=== PATIENT | male | born 1945 | race Caucasian/White ===

== ENCOUNTER 2017-01-19 20:28 | Emergency (ER) | payer OTHER ==
[2017-01-19 20:38] VITALS: BP 165/86; PULSE 107; TEMP 98.6; BMI 32.5
[2017-01-19] MEDS ORDERED: IBUPROFEN 400 MG TABLET (FP) PO ONE ×2 (21:12→21:28)
--- NOTE | 2017-01-19 21:17 | PDOC ---
History of Present Illness - General History Source: Patient, Family (Son) Exam Limitations: No Limitations - History of Present Illness Initial Comments: 01/19/17 21:40 The patient is a 71 year old male, with a significant past medical history of HTN, hyperlipidemia and diabetes, who presents to the emergency department with chest pain and left wrist pain s/p a mechanical trip and fall down the stairs earlier this evening. The patient states that he missed a step and fell, he denies any syncopal event. The patient states that he landed on his anterior chest and additionally hit his left wrist on the handle of a lawnmower as he fell. The patient is presenting with left sternal pain and left wrist pain. The patient denies hitting his head, denies head trauma or LOC. The patient denies neck pain, back pain or any extremity numbness or weakness. The patient's son is at the bedside. Allergies: None reported. Past Surgical History: None reported. Social History: Non smoker. Denies alcohol or drug use. PCP: Dr. Carmen <Nicki Pool - Last Filed: 01/19/17 23:01> - General History Source: Patient Exam Limitations: No Limitations <Fidencio Chaney - Last Filed: 01/19/17 23:30> - General Chief Complaint: Chest Pain Stated Complaint: FALL/CHEST PAIN/LT ARM PAIN Time Seen by Provider: 01/19/17 20:30 Past History <Nicki Pool - Last Filed: 01/19/17 23:01> - Past Medical History Diabetes: Yes HTN: Yes Hypercholesterolemia: Yes - Psycho/Social/Smoking Cessation Hx Anxiety: No Suicidal Ideation: No Smoking History: Never smoked Have you smoked in the past 12 months: No Information on smoking cessation initiated: No Hx Alcohol Use: No Drug/Substance Use Hx: No Substance Use Type: None <Fidencio Chaney - Last Filed: 01/19/17 23:30> - Past Medical History Allergies/Adverse Reactions: Allergies Allergy/AdvReac Type Severity Reaction Status Date / Time No Known Allergies Allergy Verified 01/19/17 21:23 Home Medications: Ambulatory Orders Amlodipine Besylate [Norvasc -] 10 mg PO DAILY 01/19/17 Aspirin [ASA -] 81 mg PO DAILY 01/19/17 Atorvastatin Ca [Lipitor] 40 mg PO HS 01/19/17 Insulin Glargine,Hum.rec.anlog [Lantus Solostar PEN (NF)] 0 units SQ HS Insulin Lispro [Humalog] 100 unit SQ ASDIR 01/19/17 Liraglutide [Victoza -] 0 mg SQ ASDIR 01/19/17 Metformin HCl [Glucophage] 1,000 mg PO BID 01/19/17 Olmesartan Medoxomil [Benicar (Nf)] 40 mg PO DAILY 01/19/17 Review of Systems - Review of Systems Able to Perform ROS?: Yes Comments:: 01/19/17 21:39 GENERAL/CONSTITUTIONAL: No fever or chills. No weakness. HEAD, EYES, EARS, NOSE AND THROAT: No change in vision. No ear pain or discharge. No sore throat. CARDIOVASCULAR: +Chest pain. No shortness of breath. RESPIRATORY: No cough, wheezing, or hemoptysis. GASTROINTESTINAL: No nausea, vomiting, diarrhea or constipation. GENITOURINARY: No dysuria, frequency, or change in urination. MUSCULOSKELETAL: +Left sternal pain, left wrist pain. No muscle swelling or pain. No neck or back pain. SKIN: No rash. NEUROLOGIC: No headache, vertigo, loss of consciousness, or change in strength/ sensation. ENDOCRINE: No increased thirst. No abnormal weight change. HEMATOLOGIC/LYMPHATIC: No anemia, easy bleeding, or history of blood clots. ALLERGIC/IMMUNOLOGIC: No hives or skin allergy. <Nicki Pool - Last Filed: 01/19/17 23:01> *Physical Exam - Vital Signs Last Vital Signs Temp Pulse Resp BP Pulse Ox 98.6 F 107 H 22 165/86 95 01/19/17 20:32 01/19/17 20:32 01/19/17 20:32 01/19/17 20:32 01/19/17 20:32 - Physical Exam Comments: 01/19/17 21:39 GENERAL: Awake, alert, and fully oriented, in no acute distress. HEAD: No signs of trauma. EYES: PERRLA, EOMI, sclera anicteric, conjunctiva clear. ENT: Auricles normal inspection, hearing grossly normal, nares patent, oropharynx clear without exudates. Moist mucosa. NECK: Normal ROM, supple, no lymphadenopathy, JVD, or masses. CHEST: Tenderness to palpation of the anterior sternum. LUNGS: Breath sounds equal, clear to auscultation bilaterally. No wheezes, and no crackles. HEART: Regular rate and rhythm, normal S1 and S2, no murmurs, rubs or gallops. ABDOMEN: Soft, nontender, normoactive bowel sounds. No guarding, no rebound. No masses. EXTREMITIES: Tenderness and ecchymosis of the left radial wrist. No wrist instability. 2+ radial pulse intact. Sensations intact throughout medial, radial and ulnar nerves. No snuffbox tenderness. No pain on axial loading. Normal range of motion, no edema. No clubbing or cyanosis. No cords, erythema. NEUROLOGICAL: Cranial nerves II through XII intact. Normal speech, normal gait. SKIN: Warm, dry, normal turgor, no rashes or lesions noted. <Nicki Pool - Last Filed: 01/19/17 23:01> - Vital Signs Last Vital Signs Temp Pulse Resp BP Pulse Ox 98.6 F 107 H 22 165/86 95 01/19/17 20:32 01/19/17 20:32 01/19/17 20:32 01/19/17 20:32 01/19/17 20:32 <Fidencio Chaney - Last Filed: 01/19/17 23:30> Heart Score/ECG Review - History History: Slightly suspicious - Electrocardiogram EKG: Non specific repolarization disturbance - Age Age: >/= 65 - Risk Factors Based on the list above the patient has:: >/=3 risk factors or Hx atherosclerotic disease - Troponin Troponin: </= normal limit - Score Heart Score - Total: 5 #1 ECG reviewed & interpreted by me at: 20:45 01/19/17 21:17 NSR Q wave V1-V2, no std/jc, normal axis, normal intervals, QTC 436 msec <Fidencio Chaney - Last Filed: 01/19/17 23:30> ED Treatment Course - LABORATORY CBC & Chemistry Diagram: 01/19/17 21:50 01/19/17 21:50 - Medications Given in the ED: ED Medications Discontinued Medications Generic Name Dose Route Start Last Admin Trade Name Freq PRN Reason Stop Dose Admin Ibuprofen 800 mg 01/19/17 21:12 01/19/17 21:31 Motrin - PO 01/19/17 21:13 800 mg ONCE ONE Administration <Nicki Pool - Last Filed: 01/19/17 23:01> - LABORATORY CBC & Chemistry Diagram: 01/19/17 21:50 01/19/17 21:50 <Fidencio Chaney - Last Filed: 01/19/17 23:30> Medical Decision Making - Medical Decision Making 01/19/17 23:01 EXAM: RAD/CHEST PA & LAT Reviewed By: Dr. Stella Rouse IMPRESSION: Since prior chest x-ray dated 11/30/2011, the cardiac silhouette remains within normal limits in size with unfolding of the aortic arch and mild perihilar increased lung markings. Mediastinum and visualized osseous structures appear intact. EXAM: RAD/STERNUM 2 VIEWS Reviewed By: Dr. Stella Rouse IMPRESSION: No gross fracture is identified. Correlate clinically for further evaluation. EXAM: RAD/WRIST - LEFT Reviewed By: Dr. Stella Rouse IMPRESSION: The alignment is satisfactory without evidence of fracture or dislocation. No gross soft tissue swelling is identified. <Nicki Pool - Last Filed: 01/19/17 23:01> - Medical Decision Making 01/19/17 21:17 A portion of this note was documented by scribe services under my direction. I have reviewed the details of the note, within reason, and agree with the documentation with the following case summary and management plan written by me. Patient treated in the ED. Nursing notes are reviewed and incorporated into the medical decision-making. Vital signs reviewed. Peripheral IV access obtained by the nurse, laboratory studies are drawn and sent, reviewed and interpreted by myself. Vital Signs Temp Pulse Resp BP Pulse Ox 98.6 F 107 H 22 165/86 95 01/19/17 20:32 01/19/17 20:32 01/19/17 20:32 01/19/17 20:32 01/19/17 20:32 71-year-old male with history of hypertension, diabetes, hyperlipidemia presents with chest pain. Patient had slipped and missed a step and landed on his anterior chest on a lawnmower handle. His reports left sternal pain and left wrist pain. Denies numbness or weakness. Denies head trauma. Came into the ED for further evaluation. This is a muscle skeletal injury and not a cardiac chest pain. We'll obtain a left wrist x-ray and a chest x-ray. Motrin and reassess. 01/19/17 23:28 CBC, BMP 01/19/17 21:50 01/19/17 21:50 CMP Sodium 143 mmol/L (136-145) 01/19/17 21:50 Potassium 4.2 mmol/L (3.5-5.1) 01/19/17 21:50 Chloride 105 mmol/L (98-107) 01/19/17 21:50 Carbon Dioxide 29 mmol/L (21-32) 01/19/17 21:50 Anion Gap 9 (8-16) 01/19/17 21:50 BUN 17 mg/dL (7-18) 01/19/17 21:50 Creatinine 1.3 mg/dL (0.7-1.3) 01/19/17 21:50 Creat Clearance w eGFR 54.26 (>60) 01/19/17 21:50 Random Glucose 207 mg/dL (74-106) H 01/19/17 21:50 Calcium 8.9 mg/dL (8.5-10.1) 01/19/17 21:50 Total Bilirubin 0.3 mg/dL (0.2-1.0) 01/19/17 21:50 AST 26 U/L (15-37) 01/19/17 21:50 ALT 46 U/L (12-78) 01/19/17 21:50 Alkaline Phosphatase 63 U/L (45-117) 01/19/17 21:50 Creatine Kinase 250 IU/L (39-308) 01/19/17 21:50 CK-MB (CK-2) Rel Index Cancelled 01/19/17 21:50 Troponin I < 0.02 ng/ml (0.00-0.05) 01/19/17 21:50 Total Protein 7.1 g/dl (6.4-8.2) 01/19/17 21:50 Albumin 3.8 g/dl (3.4-5.0) 01/19/17 21:50 Xrays reviewed. No acute fractures. CALIXTO wrap applied. Pt feels reassured. I discussed the physical exam findings, ancillary test results and final diagnoses with the patient. I answered all of the patient's questions. The patient was satisfied with the care received and felt comfortable with the discharge plan and treatment plan. The patient will call their primary care physician within 24 hours to arrange follow-up and will return to the Emergency Department with any new, persistant or worsening symptoms. <Fidencio Chaney - Last Filed: 01/19/17 23:30> *DC/Admit/Observation/Transfer - Attestations Scribe Attestion: 01/19/17 21:38 Documentation prepared by Nicki Pool, acting as rn medical inpatient services for Fidencio Chaney MD. <Nicki Pool - Last Filed: 01/19/17 23:01> - Discharge Dispostion Admit: No <Fidencio Chaney - Last Filed: 01/19/17 23:30> Diagnosis at time of Disposition: Fall Qualifiers: Encounter type: initial encounter Qualified Code(s): W19.XXXA - Unspecified fall, initial encounter - Discharge Dispostion Disposition: HOME Condition at time of disposition: Improved - Referrals Referrals: Pelon Carmen MD [Primary Care Provider] - - Patient Instructions Printed Discharge Instructions: How to Prevent Falls, DI for Musculoskeletal Pain Additional Instructions: Your xrays are negative for fracture. Take 600 mg ibuprofen every 6 hours as needed for pain.
[2017-01-19 21:58] LABS: BASOPHIL 0.8 % (0-2.0); MCH 27.7 pg (25.7-33.7); MCHC 33.2 g/dl (32.0-35.9); MEAN CELL VOLUME 83.4 fl (80-96); MEAN PLT VOLUME 8.4 fl (7.5-11.1); NEUTROPHILS 67.5 % (42.8-82.8); PLATELET COUNT 319 K/MM3 (134-434); RDW 13.8 % (11.9-15.9); WHITE BLOOD COUNT 10.6 K/mm3 (4.0-10.0)
[2017-01-19 22:36] LABS: ALBUMIN 3.8 g/dl (3.4-5.0); ANION GAP 9 (8-16); BILIRUBIN,TOTAL 0.3 mg/dL (0.2-1.0); CALCIUM 8.9 mg/dL (8.5-10.1); CO2 29 mmol/L (21-32); CREATININE 1.3 mg/dL (0.7-1.3); GLUCOSE,RANDOM 207 mg/dL (74-106); SGOT/AST 26 U/L (15-37); SGPT/ALT 46 U/L (12-78); TOT PROT 7.1 g/dl (6.4-8.2)
[2017-01-19 22:38] LABS: ALK PHOS 63 U/L (45-117); TROPONIN I < 0.02 ng/ml (0.00-0.05)
--- NOTE | 2017-01-20 21:04 | EKG ---
Test Reason : Blood Pressure : / mmHG Vent. Rate : 098 BPM Atrial Rate : 098 BPM P-R Int : 162 ms QRS Dur : 082 ms QT Int : 342 ms P-R-T Axes : 044 067 080 degrees QTc Int : 436 ms NORMAL SINUS RHYTHM SEPTAL INFARCT , AGE UNDETERMINED ABNORMAL ECG NO PREVIOUS ECGS AVAILABLE Confirmed by SHAWN SAWANT MD ([id number]) on 01/20/2017 9:04:40 PM Referred By: Confirmed By:SHAWN SAWANT MD
== END 2017-01-19 23:51 | disposition home or self-care (01) ==
LOC: SUPCPDRO 20:28 → JER 20:28
DX: M25.532 Pain in left wrist (principal); S29.8XXA Other specified injuries of thorax, initial encounter; S21.102A Unspecified open wound of left front wall of thorax without penetration into thoracic cavity, initial encounter; W10.8XXA Fall (on) (from) other stairs and steps, initial encounter; Y93.89 Activity, other specified; Y92.098 Other place in other non-institutional residence as the place of occurrence of the external cause; I10 Essential (primary) hypertension; E11.9 Type 2 diabetes mellitus without complications; Z79.4 Long term (current) use of insulin; Z79.84 Long term (current) use of oral hypoglycemic drugs; E78.00 Pure hypercholesterolemia, unspecified
CPT/HCPCS: 36415; 71020-TC; 71120-TC; 73110-TC-LT; 80053; 82550; 82553; 84484; 85025; 93005; 93010; 99283-25

== ENCOUNTER 2017-11-06 09:27 | Inpatient (IN) | payer OTHER ==
--- NOTE | 2017-11-05 09:12 | HP ---
Satellite [facility] - Chief Complaint Chief Complaint: right knee pain - Past Medical History Allergies/Adverse Reactions: Allergies Allergy/AdvReac Type Severity Reaction Status Date / Time No Known Allergies Allergy Verified 11/01/17 14:58 - Current Medications Current Medications: Home Medications Medication Instructions Recorded Amlodipine Besylate [Norvasc -] 10 mg PO DAILY 01/19/17 Aspirin [ASA -] 81 mg PO DAILY 01/19/17 Atorvastatin Ca [Lipitor] 40 mg PO HS 01/19/17 Insulin Glargine,Hum.rec.anlog 50 units SQ BID 01/19/17 [Lantus Solostar PEN (NF)] Insulin Lispro [Humalog] 12 unit SQ BID 01/19/17 Metformin HCl [Glucophage] 1,000 mg PO BID 01/19/17 Olmesartan Medoxomil [Benicar (Nf)] 40 mg PO DAILY 01/19/17 Fenofibrate,Micronized 134 mg PO DAILY 11/01/17 [Fenofibrate] Levothyroxine [Synthroid -] 25 mcg PO DAILY 11/01/17 Liraglutide [Victoza -] 1.8 mg SQ DAILY@0700 11/01/17 Satellite Physical Exam - Physical Examination General Appearance: Well Nourished, Well Developed, Alert & Oriented x3 ENT: Clear Lung: Normal air movement Heart: Regular rate & rhythm Extremities: Other (right knee- + swelling, + ttp, decr rom, nvi xrays show grade 4 tricompartmental djd) Neurological: Intact, Alert, Oriented Satellite Impression/Plan - Impression/Plan Impression: right knee djd Operative Procedure: right david tkr Date to be Performed: 11/06/17
[2017-11-06] MEDS ORDERED: CELECOXIB 200 MG CAPSULE PO ONE (09:43)
[2017-11-06] MEDS ORDERED: GABAPENTIN 300 MG CAPSULE (FP) PO ONE (09:43)
[2017-11-06] MEDS ORDERED: oxyCODONE HCL 10 MG SUSTAINED ACTING TABLET PO ONE (09:43)
[2017-11-06] MEDS ORDERED: CEFAZOLIN 1 GM/D5W 1 GRAM/50 ML BAG IVPB ONE (09:43)
[2017-11-06] MEDS ORDERED: TRANEXAMIC ACID 1000 MG/10 ML VIAL IVPUSH ONE (09:43)
[2017-11-06 10:13] VITALS: BMI 32.9
[2017-11-06] MEDS ORDERED: VANCOMYCIN 1,000 MG VIAL (RESTRICTED TO ID ONLY) IVPB ONE (12:44)
[2017-11-06] MEDS ORDERED: MAG HYDROX/AL HYDROX/SIMETH 30 ML UNIT-DOSE CUP PO PRN (12:58)
[2017-11-06] MEDS ORDERED: ONDANSETRON 4 MG/2 ML VIAL IVPUSH PRN (12:58)
[2017-11-06] MEDS ORDERED: MAGNESIUM HYDROX 2400MG/30ML ORAL SUSPENSION 30 ML CUP PO PRN (12:58)
[2017-11-06] MEDS ORDERED: LACTATED RINGERS SOLUTION 1,000 ML IV SCH (13:00)
--- NOTE | 2017-11-06 13:00 | OP ---
Operative Note - Note: Operative Date: 11/06/17 (vadim) Pre-Operative Diagnosis: right knee djd Operation: right david tkr Post-Operative Diagnosis: Same as Pre-op Surgeon: Toni Munoz Color Depositing Machine Tender: Alen Khan Anesthesiologist/SHANK BURNISHER: Fran Gill Anesthesia: Spinal, Local Specimens Removed: bone fragments Estimated Blood Loss (mls): 100 Operative Report Dictated: Yes
[2017-11-06] MEDS ORDERED: oxyCODONE HCL 5 MG TABLET PO PRN (15:13)
[2017-11-06] MEDS: oxyCODONE HCL 5 MG TABLET PO PRN (15:26)
[2017-11-06] MEDS: ACETAMINOPHEN 325 MG TABLET (FP) PO SCH ×2 (15:26→21:49)
[2017-11-06] MEDS: LACTATED RINGERS SOLUTION 1,000 ML IV SCH (15:27)
[2017-11-06] MEDS: metFORMIN HCL 500 MG TABLET (FP) PO SCH (17:18)
[2017-11-06] MEDS: INSULIN (NOVOLOG) ASPART 100 UNITS/ML 10ML VIAL SQ SCH (17:20)
[2017-11-06] MEDS: INSULIN SLIDING SCALE (NOVOLOG) 1 VIAL SQ SCH ×2 (17:20→22:02)
[2017-11-06] MEDS: CEFAZOLIN 2 GM/D5W 2 GM/50 ML ML IVPB SCH (18:44)
[2017-11-06] MEDS: GABAPENTIN 300 MG CAPSULE (FP) PO SCH (21:49)
[2017-11-06] MEDS: SENNOSIDES/DOCUSATE COMBO (SENNA PLUS) TABLET (UD) PO SCH (21:49)
[2017-11-06] MEDS: ATORVASTATIN CA 40 MG TABLET (FP) PO SCH (21:49)
[2017-11-06] MEDS: oxyCODONE HCL 10 MG SUSTAINED ACTING TABLET PO SCH (21:50)
[2017-11-06] MEDS ORDERED: INSULIN (NOVOLOG) ASPART 100 UNITS/ML 10ML VIAL ONE (21:57)
[2017-11-06] MEDS: INSULIN DETEMIR 100 UNITS/ML MDV SQ SCH (21:58)
[2017-11-06] MEDS ORDERED: INSULIN LISPRO 12 UNIT SQ SCH (22:00)
[2017-11-06] MEDS ORDERED: PATIENT'S OWN MEDICATION (NON-FORMULARY) (Insulin Glargine,Hum.Rec.Anlog 50 UNITS) SQ SCH (22:00)
[2017-11-07] MEDS: ACETAMINOPHEN 325 MG TABLET (FP) PO SCH ×4 (02:47→21:08)
[2017-11-07] MEDS: CEFAZOLIN 2 GM/D5W 2 GM/50 ML ML IVPB SCH (02:47)
[2017-11-07] MEDS: LEVOTHYROXINE NA 25 MCG TABLET (FP) PO SCH (06:21)
[2017-11-07] MEDS ORDERED: REFRIGERATED ANITBIOTICS ONE (06:49)
[2017-11-07] MEDS: metFORMIN HCL 500 MG TABLET (FP) PO SCH ×2 (06:50→16:20)
[2017-11-07] MEDS: LIRAGLUTIDE 0.6 MG/0.1 ML PEN.INJCTR SQ SCH (06:51)
[2017-11-07] MEDS: INSULIN SLIDING SCALE (NOVOLOG) 1 VIAL SQ SCH ×4 (06:51→21:10)
[2017-11-07] MEDS: oxyCODONE HCL 5 MG TABLET PO PRN ×2 (06:54→17:13)
[2017-11-07] MEDS: INSULIN (NOVOLOG) ASPART 100 UNITS/ML 10ML VIAL SQ SCH ×2 (06:54→16:21)
[2017-11-07 08:20] LABS: MCH 28.3 pg (25.7-33.7); MEAN CELL VOLUME 83.1 fl (80-96); MEAN PLT VOLUME 9.1 fl (7.5-11.1); PLATELET COUNT 332 K/MM3 (134-434); RDW 12.8 % (11.9-15.9); WHITE BLOOD COUNT 11.5 K/mm3 (4.0-10.8)
[2017-11-07] MEDS: ASPIRIN 325 MG TABLET PO SCH (08:55)
--- NOTE | 2017-11-07 09:26 | PN ---
Progress Note (short form) - Note Progress Note: Ortho Pt seen and examined s/p right david tkr pod #1 Selected Entries 11/07/17 06:00 Temperature 97.4 F L Pulse Rate 85 Respiratory 18 Rate Blood Pressure 142/70 Laboratory Tests 11/07/17 07:30 WBC 11.5 H Hgb 12.4 Hct 36.3 Plt Count 332 dressing c/d/i, calf soft, nt rom 0-40, nvi a/p PT dvt ppx pain control d/c home tomorrow if stable
[2017-11-07] MEDS: PANTOPRAZOLE 40 MG TABLET (FP) PO SCH (09:36)
[2017-11-07] MEDS: GABAPENTIN 300 MG CAPSULE (FP) PO SCH ×2 (09:36→21:08)
[2017-11-07] MEDS: oxyCODONE HCL 10 MG SUSTAINED ACTING TABLET PO SCH ×2 (09:36→21:09)
[2017-11-07] MEDS: MULTIVITAMINS (DAILY MVI) TABLET (FP) PO SCH (09:37)
[2017-11-07] MEDS: VALSARTAN 160 MG TABLET (UD) PO SCH (09:37)
[2017-11-07] MEDS: SENNOSIDES/DOCUSATE COMBO (SENNA PLUS) TABLET (UD) PO SCH ×2 (09:37→21:08)
[2017-11-07] MEDS: FENOFIBRIC ACID 135 MG CAP PO SCH (09:38)
[2017-11-07] MEDS: amLODIPine BESYLATE 10 MG TABLET (FP) PO SCH (09:39)
[2017-11-07] MEDS ORDERED: PT OWN MED DRAWER 7, Y5N ONE (09:44)
[2017-11-07] MEDS ORDERED: PATIENT'S OWN MEDICATION (NON-FORMULARY) (Olmesartan Medoxomil 40 MG) PO SCH (10:00)
[2017-11-07] MEDS ORDERED: PATIENT'S OWN MEDICATION (NON-FORMULARY) (Fenofibrate,Micronized [Fenofibrate] 134 MG) PO SCH (10:00)
--- NOTE | 2017-11-07 10:58 | PN ---
Progress Note (short form) - Note Progress Note: Post op day#1.S/p Right total knee replacement under spinal anesthesia with R adductor canal and R selective tibial N block uneventful.Patient stable and c/ o pain score of 5-6/10 after physiotherapy.Patient is on medication for pain.No any anesthesia related problem.Patient dc from the anesthesia care.
[2017-11-07] MEDS: INSULIN DETEMIR 100 UNITS/ML MDV SQ SCH ×2 (11:04→21:14)
--- NOTE | 2017-11-07 11:17 | OP ---
DATE OF OPERATION: 11/06/2017 PREOPERATIVE DIAGNOSIS: Degenerative joint disease, right knee. POSTOPERATIVE DIAGNOSIS: Degenerative joint disease, right knee. OPERATION: Right total knee replacement with robotic-assisted navigation (MAKOplasty). SURGICAL ATTENDING: Toni Munoz MD CYTOGENETICIST: GOYO Elizabeth ANESTHESIA: Regional and spinal. CLOSURE: A Press-Fit Triathlon knee with a 6 femur, a 6 tibia, a 9 polyethylene, a 35 patella. A number 1 Vicryl fascia, 0 and 2-0 for subcutaneous, 3-0 Monocryl subcuticular with skin glue for skin, 4-0 undyed Vicryl for pin sites. ESTIMATED BLOOD LOSS: Approximately 100 mL. TOURNIQUET TIME: No tourniquet. COMPLICATIONS: None CONDITION: To recovery room in stable condition. DESCRIPTION OF PROCEDURE: Patient was taken to the operating room on November 06, 2017. Regional and spinal anesthesia were administered by the anesthesiologist. IV Kefzol and TXA were administered prophylactically prior to the case. The right lower extremity was prepped and draped in the usual sterile fashion. A 10-12-cm longitudinal midline incision centered over the patella was incised. Hemostasis was achieved with Bovie cautery. Sharp dissection was carried down to the level of the extensor mechanism flaps perform the procedure. A medial parapatellar arthrotomy was then made leaving a cuff of tissue for later closure. The patella was inverted and the knee was flexed up. Subperiosteal dissection was done on the anteromedial proximal tibia until the tibia was able to be brought forward. This was facilitated by taking the ACL, PCL, and menisci. Checkpoints were malleted in both the femur and the tibia. Two pins were drilled in parallel fashion through this incision on the distal femur from anterior to posterior through the anterior cortex and engaging, but not through the posterior cortex. Two pins were drilled in parallel fashion through 2 small stab incisions a handbreadth below the tibial tubercle again through the anterior cortex but up and to and engaging the far cortex, but not through it. Both these pins were fashioned with navigation rays. The knee was then registered with the navigation device with center of rotation of the hip, medial and lateral malleoli, and multiple sites on both the femur and on the tibia. Confirmation of excellent registration was confirmed by "popping the bubbles." Osteophytes were then removed throughout the knee. The knee was then tensioned in 90 degrees of flexion and extension. We then virtually moved the position of the virtual components to optimize the flexion and extension gaps both medially and laterally. When equal gaps were obtained, we locked in those positions of the virtual components. The robot was then brought into the field. The femur and the tibia were then cut as per plan for the 6 femur and the 6 tibia. The keyhole was made on the tibia and the box was made on the femur as we were doing a posterior sacrificing components. Trial components with a 6 femur, 6 tibia, and a 9 insert achieved excellent stability throughout range of motion. The patella was calibrated for thickness and osteotomized at the appropriate level. The lollipop was used to drill the lugholes in the patella. A trial button was applied. Patient was taken through a range of motion and found to have excellent tracking of the patella throughout. The lugholes were then drilled in the femur, and the keyhole punched on the tibia. The trial components were removed. The knee was then thoroughly irrigated with antibiotic irrigation. The real Press-Fit implants were malleted in the femur and tibia, and clamped into place on the patella. The real 9 polyethylene insert was then clipped into place. Range of motion, stability, and tracking were as described earlier. The knee was irrigated again, dried. Vancomycin powder was placed into the knee joint before the arthrotomy was closed. The arthrotomy was then closed using No. 1 Vicryl interrupted suture. Post closure of the arthrotomy, the knee was taken through a range of motion, found to have excellent tracking with no undue tension on the repair. The subcutaneous was pulse antibiotic irrigated and then closed with 0 and 2-0 Vicryl, and 3-0 Monocryl subcuticular with skin glue for skin, 4-0 undyed Vicryl for the pin sites after those pin sites were thoroughly irrigated, as well. Sterile pressure dressing was placed over the knee. The patient was awakened from anesthesia and transferred to the recovery room in stable condition. No complications. No tourniquet was used. Total blood loss was approximately 100 mL. Magen [id number]
[2017-11-07] MEDS: LACTATED RINGERS SOLUTION 1,000 ML IV SCH (16:21)
[2017-11-07] MEDS: ATORVASTATIN CA 40 MG TABLET (FP) PO SCH (21:08)
[2017-11-07] MEDS ORDERED: INSULIN DETEMIR 100 UNITS/ML MDV SQ SCH (22:00)
[2017-11-07 23:25] VITALS: TEMP 98.5
[2017-11-08] MEDS: ACETAMINOPHEN 325 MG TABLET (FP) PO SCH ×2 (06:06→09:15)
[2017-11-08] MEDS: LEVOTHYROXINE NA 25 MCG TABLET (FP) PO SCH (06:07)
[2017-11-08 06:17] VITALS: BP 144/64; PULSE 91
[2017-11-08] MEDS: metFORMIN HCL 500 MG TABLET (FP) PO SCH (06:17)
[2017-11-08] MEDS ORDERED: PT OWN MED DRAWER 7, Y5N ONE (06:31)
[2017-11-08] MEDS: oxyCODONE HCL 5 MG TABLET PO PRN (07:00)
[2017-11-08] MEDS: LIRAGLUTIDE 0.6 MG/0.1 ML PEN.INJCTR SQ SCH (07:02)
[2017-11-08] MEDS: INSULIN SLIDING SCALE (NOVOLOG) 1 VIAL SQ SCH (07:03)
[2017-11-08] MEDS: INSULIN (NOVOLOG) ASPART 100 UNITS/ML 10ML VIAL SQ SCH (07:03)
--- NOTE | 2017-11-08 07:30 | PN ---
Progress Note (short form) - Note Progress Note: Ortho Pt seen and examined s/p right david tkr pod #2 Selected Entries 11/08/17 06:14 Temperature 98.5 F Pulse Rate 91 H Respiratory 20 Rate Blood Pressure 144/64 Laboratory Tests 11/07/17 07:30 WBC 11.5 H Hct 36.3 MCV 83.1 Plt Count 332 dressing c/d/i, calf soft, nt rom 0-40, nvi a/p PT dvt ppx pain control d/c home today f/u in 1 week
--- NOTE | 2017-11-08 07:30 | DS ---
Physical Examination Vital Signs: Vital Signs Temperature 98.5 F 11/08/17 06:14 Pulse Rate 91 H 11/08/17 06:14 Respiratory Rate 20 11/08/17 06:14 Blood Pressure 144/64 11/08/17 06:14 O2 Sat by Pulse Oximetry (%) 93 L 11/08/17 06:14 Labs: CBC, BMP 11/07/17 07:30 Discharge Summary Reason For Visit: OSTEOARTHRITIS Procedures: Principal: s/p right david tkr Hospital Course: admitted for elective right david tkr, uneventful post-op,stable for d/c Condition: Good - Instructions Diet, Activity, Other Instructions: Post-op Instructions-Total Knee Replacement Call the office for a follow-up appointment in 1 week - [phone] Aspirin 325mg daily for 6 weeks. Pain medication was sent into your pharmacy. Apply Graduated Compression Stockings (TEDs) to both lower extremities- remove daily for hygiene ONLY Apply Sequential Compression Device (SCDs) to both Lower extremities remove for PT and hygiene ONLY Apply cold packs to affected area for 15 minutes every 2 hours. Physical Therapist will come to your home for the first 5 days. You will be set up with outpatient PT at your first post-operative visit. Patient may ambulate as tolerated-encourage self care (at least every 2-3 hours while awake) with walker or cane Maintain Aquacel (waterproof) dressing to operative wound (will be removed by surgeon at first office visit) Shower with Aquacel dressing in place-if Aquacel integrity compromised, remove and apply dry sterile dressing and notify Orthopedist. DO NOT SHOWER unless Orthopedists approves without Aquacel dressing CONTACT THE OFFICE FOR ANY CHANGE IN YOUR CONDITION (for example-fever greater than 102 degrees, excessive bleeding from operative site, purulent drainage, severe swelling or pain) GO TO THE EMERGENCY ROOM IF THERE IS A MEDICAL EMERGENCY Knee Precautions: * Keep a rolled towel under affected heel while in bed or chair (to keep knee in extension) * Keep affected leg elevated except during mealtimes * DO NOT PLACE PILLOW UNDER AFFECTED KNEE * If you have any questions, please do not hesitate to call the office - [phone]. Referrals: Toni Munoz MD [Staff Physician] - Disposition: VNS/HOME HEALTH CARE - Home Medications Comprehensive Discharge Medication List: Ambulatory Orders Amlodipine Besylate [Norvasc -] 10 mg PO DAILY 01/19/17 Atorvastatin Ca [Lipitor] 40 mg PO HS 01/19/17 Insulin Glargine,Hum.rec.anlog [Lantus Solostar PEN -] 50 units SQ BID 01/19/17 Insulin Lispro [Humalog Kwikpen U-100] 12 unit SQ BID 01/19/17 Metformin HCl [Glucophage] 1,000 mg PO BID 01/19/17 Olmesartan Medoxomil [Benicar -] 40 mg PO DAILY 01/19/17 Fenofibrate,Micronized [Fenofibrate] 134 mg PO DAILY 11/01/17 Levothyroxine [Synthroid -] 25 mcg PO DAILY 11/01/17 Liraglutide [Victoza -] 1.8 mg SQ DAILY@0700 11/01/17 Aspirin [ASA -] 325 mg PO DAILY@0800 tablet 11/06/17 Oxycodone HCl/Acetaminophen [Percocet 5-325 mg Tablet] 1 - 2 tab PO Q6H #50 tab MDD 8 11/06/17
[2017-11-08] MEDS: ASPIRIN 325 MG TABLET PO SCH (08:55)
[2017-11-08] MEDS: GABAPENTIN 300 MG CAPSULE (FP) PO SCH (09:11)
[2017-11-08] MEDS: MULTIVITAMINS (DAILY MVI) TABLET (FP) PO SCH (09:12)
[2017-11-08] MEDS: FENOFIBRIC ACID 135 MG CAP PO SCH (09:12)
[2017-11-08] MEDS: VALSARTAN 160 MG TABLET (UD) PO SCH (09:13)
[2017-11-08] MEDS: PANTOPRAZOLE 40 MG TABLET (FP) PO SCH (09:13)
[2017-11-08] MEDS: SENNOSIDES/DOCUSATE COMBO (SENNA PLUS) TABLET (UD) PO SCH (09:13)
[2017-11-08] MEDS: amLODIPine BESYLATE 10 MG TABLET (FP) PO SCH (09:14)
[2017-11-08] MEDS: oxyCODONE HCL 10 MG SUSTAINED ACTING TABLET PO SCH (09:14)
[2017-11-08 09:18] LABS: MCH 27.9 pg (25.7-33.7); MCHC 33.6 g/dl (32.0-35.9); MEAN PLT VOLUME 9.4 fl (7.5-11.1); PLATELET COUNT 338 K/MM3 (134-434); RDW 13.1 % (11.9-15.9); WHITE BLOOD COUNT 12.4 K/mm3 (4.0-10.8)
--- NOTE | 2017-11-08 16:23 | PATH ---
Surgical Pathology Report Patient Name: HAMIDA HANDLEY Med. Rec. #: [id number] /Age/Gender: 1945 (Age: 71) / M Account: [id number] Location: [facility] Taken: 11/06/2017 Received: 11/06/2017 Reported: 11/08/2017 Physicians: Toni Munoz M.D. Specimen(s) Received RIGHT KNEE BONE AND TISSUE Clinical History Osteoarthritis right knee Final Diagnosis BONE AND SOFT TISSUE, RIGHT KNEE, REPLACEMENT: DEGENERATIVE JOINT DISEASE. Electronically Signed Merritt Lyons M.D. Gross Description Received in formalin labeled "right knee bone and tissue," is a 13.5 x 10.0 x 1.9 cm aggregate of alva-yellow, irregular portions of bone and soft tissue. The tibial plateau measures 7.5 x 6.0 x 1.7 cm. There are no areas of eburnation identified. The articular surfaces are alva-yellow and diffusely granular. The underlying trabecular bone is yellow and hard. Air Conditioning Unit Tester sections are submitted in one cassette, following decalcification. 11/07/2017 [facility]/07/2017
== END 2017-11-08 15:23 | disposition home health service (06) | DRG 470 ==
LOC: FM/S 09:27
PROVIDERS: ADMIT Orthopaedic Surgery; ATTEND Orthopaedic Surgery
PROC: 8E0Y0CZ Robotic Assisted Procedure of Lower Extremity, Open Approach (ICD-10-PCS; 2017-11-06)
PROC: 0SRC0JA Replacement of Right Knee Joint with Synthetic Substitute, Uncemented, Open Approach (ICD-10-PCS; principal; 2017-11-06 11:32)
DX: M17.11 Unilateral primary osteoarthritis, right knee (principal); I10 Essential (primary) hypertension; E11.9 Type 2 diabetes mellitus without complications; Z79.4 Long term (current) use of insulin
CPT/HCPCS: 36415; 73560-TC-RT; 85027; 88304-TC; 88311-TC; 94010; 94760; 97116-GP; 97162-GP

== ENCOUNTER 2018-12-30 09:14 | Inpatient (IN) | payer OTHER ==
--- NOTE | 2018-12-30 11:16 | PDOC ---
History of Present Illness - General Chief Complaint: Pain, Acute Stated Complaint: RENAL CYST Time Seen by Provider: 12/30/18 11:07 History Source: Patient Exam Limitations: No Limitations - History of Present Illness Initial Comments: 73YOM with h/o enlarging renal cyst (12 cm diameter), HTN, HLD, and DM who p/w abdominal discomfort which is mild but worsening over the past couple of years. Sent in by Dr. Carmen for admission for removal of the cyst. The patient denies any new symptoms, and denies f/c/n/v/d/c, headache, lightheadedness, abdominal distention, chest pain, SOB, dysuria, retention, incontinence, hematuria, back pain, flank pain, or any other symptoms. Past History - Past Medical History Allergies/Adverse Reactions: Allergies Allergy/AdvReac Type Severity Reaction Status Date / Time No Known Allergies Allergy Verified 11/01/17 14:58 Home Medications: Ambulatory Orders Amlodipine Besylate [Norvasc -] 10 mg PO DAILY 01/19/17 Atorvastatin Ca [Lipitor] 40 mg PO HS 01/19/17 Insulin Glargine,Hum.rec.anlog [Lantus Solostar PEN -] 38 units SQ ACDIN Insulin Lispro [Humalog Kwikpen U-100] 12 unit SQ BID 01/19/17 Metformin HCl [Glucophage] 1,000 mg PO BID 01/19/17 Olmesartan Medoxomil [Benicar -] 40 mg PO DAILY 01/19/17 Fenofibrate,Micronized [Fenofibrate] 134 mg PO DAILY 11/01/17 Levothyroxine [Synthroid -] 25 mcg PO DAILY 11/01/17 Liraglutide [Victoza -] 1.8 mg SQ DAILY@0700 11/01/17 Aspirin [ASA -] 325 mg PO DAILY@0800 tablet 11/06/17 Losartan Potassium [Cozaar] 25 mg PO DAILY 12/30/18 Anemia: No Asthma: No Cancer: No Cardiac Disorders: No CVA: No COPD: No CHF: No Dementia: No Diabetes: Yes (DX AT AGE 49) GI Disorders: No Disorders: No HTN: Yes Hypercholesterolemia: Yes Liver Disease: No Seizures: No Thyroid Disease: No - Surgical History Cardiac Surgery: (? CARDIAC CATH- 2015- NORMAL PER SON) - Suicide/Smoking/Psychosocial Hx Smoking History: Unknown if ever smoked Have you smoked in the past 12 months: No Hx Alcohol Use: No Drug/Substance Use Hx: No Substance Use Type: None Hx Substance Use Treatment: No Review of Systems - Review of Systems Able to Perform ROS?: Yes Comments:: 12/30/18 11:45 GEN: no fever, chills, malaise, generalized weakness, or weight change HEENT: no ear pain, sore throat, vision change, or eye pain CV: no chest pain, palpitations, lightheadedness, syncope, or edema RESP: no cough, wheezing, or SOB GI: mild abdominal pain, no nausea, vomiting, diarrhea, constipation, or white/ black/bloody stool : no dysuria, hematuria, incontinence, retention, bleeding, or discharge MSK: no neck/back pain, muscle weakness/pain, or joint swelling/pain NEURO: no headache, seizure, vertigo, numbness, tingling, or focal weakness PSYCH: no substance use, no behavior change SKIN: no jaundice, no rash ROS otherwise negative except as noted in HPI *Physical Exam - Vital Signs Last Vital Signs Temp Pulse Resp BP Pulse Ox 98 F 78 20 147/82 98 12/30/18 09:39 12/30/18 09:39 12/30/18 09:39 12/30/18 09:39 12/30/18 09:39 - Physical Exam Comments: 12/30/18 11:46 GENERAL: well-appearing, A/Ox4, no distress, answers questions appropriately HEENT: PERRLA, EOMI, moist mucous membranes NECK/BACK: no midline ttp, no spinal stepoff or deformity, no hematoma, full ROM , neck supple CARDIOVASCULAR: regular rate/rhythm, normal S1S2, no MGR, strong peripheral pulses, capillary refill <2 seconds, extremities wwp, no edema LUNGS/RESPIRATORY: no respiratory distress, CTAB GI/ABDOMEN: protuberant but not tight, symmetric [id number], normoactive BS, soft, no ttp, no midline pulsatile masses : no CVA tenderness EXTREMITIES: no muscle atrophy, no acute deformity SKIN: warm and dry, no pallor, no jaundice, no rash, no bruising, no skin breakdown, no cuts, no lesions NEUROLOGICAL: GCS 15, CN II-XII grossly intact, 5/5 strength proximally and distally, no facial droop Moderate Sedation - Procedure Monitoring Vital Signs: Procedure Monitoring Vital Signs Temperature 98 F 12/30/18 09:39 Pulse Rate 78 12/30/18 09:39 Respiratory Rate 20 12/30/18 09:39 Blood Pressure 147/82 12/30/18 09:39 O2 Sat by Pulse Oximetry (%) 98 12/30/18 09:39 Heart Score/ECG Review #1 Sinus rhythm, rate 87, TWI in I and aVL, no pathologic ST-T changes ED Treatment Course - LABORATORY CBC & Chemistry Diagram: 01/01/19 06:20 01/01/19 06:20 Medical Decision Making - Medical Decision Making 12/30/18 11:47 Adult male patient p/w enlarging right renal cyst, sent by Dr. Carmen for admission and consultation for removal. Dr. Morgan is already in the department and confirms she is admitting for Dr. Carmen at this time. She accepts the patient to Med/Surg IP for the [facility]. Will continue ED course with pre-op labs and full assessment. Initial Vital Signs Temp Pulse Resp BP Pulse Ox 98 F 78 20 147/82 98 12/30/18 09:39 12/30/18 09:39 12/30/18 09:39 12/30/18 09:39 12/30/18 09:39 Exam: As noted in Physical Exam section. EKG: Reviewed; results as noted in ECG Review section. *DC/Admit/Observation/Transfer Diagnosis at time of Disposition: Renal cyst - Discharge Dispostion Condition at time of disposition: Guarded Decision to Admit order: Yes - Referrals - Patient Instructions - Post Discharge Activity
--- NOTE | 2018-12-30 11:29 | PDOC ---
Attending Attestation - Resident Resident Name: MelissaDorota - ED Attending Attestation I have performed the following: I have examined & evaluated the patient, The case was reviewed & discussed with the resident, I agree w/resident's findings & plan - HPI HPI: 12/30/18 11:28 73 YOM with h/o renal cyst, HTN, HLD, DM2, GERD, hypothyroidism,arthritis presenting with abdominal pain, and progressively enlarging left renal inferior pole cyst x [address] a/p in 2012 revealed left renal cyst 12 x 12 x 13cm, with right nonobstructing nephrolithiasis as well.. Admit to Dr Carmen for possible surgical intervention. 12/30/18 11:29 12/30/18 11:30 - Physicial Exam PE: 12/30/18 12:16 NAD, well appearing, PERRL, EOMI, nl conjunctiva, anicteric; neck supple. lungs clear, RRR, abdomen soft nontender. NO CVAT. SANCHEZ x4, no focal neuro deficits. No peripheral edema. normal color for ethnicity, WWP. - Medical Decision Making 12/30/18 11:30 hpi as documented VS wnl. admission placed to Dr Carmen service for eval of expanding left renal cyst x 1 year. possible surgical intervention basic labs/preop orders placed, ekg sinus rhythm, no ischemia. admitted to med/surg. s/o to Dr Morgan. 12/30/18 12:16
[2018-12-30 12:42] LABS: BASO % 1.4 % (0-2.0); HEMATOCRIT 38.1 % (35.4-49); HEMOGLOBIN 13.3 GM/dL (11.7-16.9); LYMPH % 25.2 % (8-40); MCH 29.4 pg (25.7-33.7); MCHC 34.7 g/dl (32.0-35.9); MEAN CELL VOLUME 84.6 fl (80-96); MEAN PLT VOLUME 8.7 fl (7.5-11.1); MONO % 8.8 % (3.8-10.2); NEUT % 53.6 % (42.8-82.8); PLATELET COUNT 293 K/MM3 (134-434); RBC 4.51 M/mm3 (4.00-5.60); WHITE BLOOD COUNT 8.5 K/mm3 (4.0-10.0)
[2018-12-30 12:54] LABS: URINE APPEARANCE CLEAR; URINE BILIRUBIN NEGATIVE (<2.0 mg/dL); URINE COLOR STRAW; URINE GLUCOSE (UA) NEGATIVE (NEGATIVE); URINE KETONE NEGATIVE (NEGATIVE); URINE LEUK ESTERASE NEGATIVE (NEGATIVE); URINE NITRITE NEGATIVE (NEGATIVE); URINE PROTEIN NEGATIVE (NEGATIVE); URINE UROBILINOGEN NEGATIVE mg/dL (0.2-1.0)
[2018-12-30 12:59] VITALS: BMI 36.5
--- NOTE | 2018-12-30 13:04 | HP ---
Admitting History and Physical - Primary Care Physician PCP: Pelon Carmen - Admission Chief Complaint: sent in for surgical evaluation of renal cysyt History of Present Illness: 73YOM with h/o enlarging renal cyst (12 cm diameter), HTN, HLD, and DM who p/w abdominal discomfort which is mild but worsening over the past couple of years. Sent in by Dr. Carmen for admission for removal of the cyst. The patient denies any new symptoms, and denies f/c/n/v/d/c, headache, lightheadedness, abdominal distention, chest pain, SOB, dysuria, retention, incontinence, hematuria, back pain, flank pain, or any other symptoms patient has been NPO since last night and has stopped asprin for one week . History Source: Patient, Medical Record - Past Medical History Cardiovascular: Yes: HTN, Hyperlipdemia Endocrine: Yes: Diabetes Mellitus - Smoking History Smoking history: Unknown if ever smoked Have you smoked in the past 12 months: No - Alcohol/Substance Use Hx Alcohol Use: No Home Medications - Allergies Allergies/Adverse Reactions: Allergies Allergy/AdvReac Type Severity Reaction Status Date / Time No Known Allergies Allergy Verified 11/01/17 14:58 - Home Medications Home Medications: Ambulatory Orders Amlodipine Besylate [Norvasc -] 10 mg PO DAILY 01/19/17 Atorvastatin Ca [Lipitor] 40 mg PO HS 01/19/17 Insulin Glargine,Hum.rec.anlog [Lantus Solostar PEN -] 50 units SQ BID 01/19/17 Insulin Lispro [Humalog Kwikpen U-100] 12 unit SQ BID 01/19/17 Metformin HCl [Glucophage] 1,000 mg PO BID 01/19/17 Olmesartan Medoxomil [Benicar -] 40 mg PO DAILY 01/19/17 Fenofibrate,Micronized [Fenofibrate] 134 mg PO DAILY 11/01/17 Levothyroxine [Synthroid -] 25 mcg PO DAILY 11/01/17 Liraglutide [Victoza -] 1.8 mg SQ DAILY@0700 11/01/17 Aspirin [ASA -] 325 mg PO DAILY@0800 tablet 11/06/17 Losartan Potassium [Cozaar] 25 mg PO DAILY 12/30/18 Review of Systems - Review of Systems Gastrointestinal: reports: Abdominal Pain Physical Examination Vital Signs: Vital Signs Temperature 97.9 F 12/30/18 12:49 Pulse Rate 77 12/30/18 12:49 Respiratory Rate 20 12/30/18 12:49 Blood Pressure 136/82 12/30/18 12:49 O2 Sat by Pulse Oximetry (%) 98 12/30/18 09:39 Constitutional: Yes: Calm Cardiovascular: Yes: Regular Rate and Rhythm, S1, S2 Respiratory: Yes: CTA Bilaterally Gastrointestinal: Yes: Soft, Distention, Hernia (umbilical) Edema: Yes Neurological: Yes: Alert, Oriented Problem List - Problems (1) Renal cyst Assessment/Plan: IR consult for apiration of cyst ct scan ivf urology consult for surgical evaluation- dr rick patient off apsirin for one week currently NPO will give ivf- if no surgery today will order diet and keep npo after midnight pre op labs ekg inr/pt scd for dvt ppx Code(s): N28.1 - CYST OF KIDNEY, ACQUIRED (2) HLD (hyperlipidemia) Assessment/Plan: statin check lipid panel Code(s): E78.5 - HYPERLIPIDEMIA, UNSPECIFIED (3) HTN (hypertension) Assessment/Plan: norvasc 5mg Code(s): I10 - ESSENTIAL (PRIMARY) HYPERTENSION (4) Diabetes Assessment/Plan: bgm ac/hs sliding scale hold metformin Code(s): E11.9 - TYPE 2 DIABETES MELLITUS WITHOUT COMPLICATIONS Qualifiers: Diabetes mellitus type: type 2 (5) Hypothyroid Assessment/Plan: synthroid tsh Code(s): E03.9 - HYPOTHYROIDISM, UNSPECIFIED
[2018-12-30 13:27] LABS: INR 0.94 (0.83-1.09); PROTHROMBIN TIME (PATIENT) 11.1 SEC (9.7-13.0)
[2018-12-30 13:29] LABS: ACTIVATED PTT 27.1 SECONDS (25.2-36.5)
[2018-12-30 13:30] LABS: ALBUMIN 3.8 g/dl (3.4-5.0); ALK PHOS 64 U/L (45-117); ANION GAP 5 MMOL/L (8-16); BILIRUBIN,TOTAL 0.7 mg/dL (0.2-1); BLOOD UREA NITROGEN 17 mg/dL (7-18); CHLORIDE 103 mmol/L (98-107); CO2 30 mmol/L (21-32); CREATININE 1.1 mg/dL (0.55-1.3); GLUCOSE,RANDOM 122 mg/dL (74-106); POTASSIUM 5.4 mmol/L (3.5-5.1); SGOT/AST 42 U/L (15-37); SGPT/ALT 39 U/L (13-61); SODIUM 137 mmol/L (136-145); TOT PROT 7.9 g/dl (6.4-8.2)
[2018-12-30] MEDS ORDERED: LOSARTAN POTASSIUM 25 MG TABLET PO ONE ×2 (13:30→16:45)
[2018-12-30] MEDS ORDERED: SODIUM POLYSTYRENE SULFONATE 15 GM/60 ML BOTTLE PO ONE (14:30)
[2018-12-30] MEDS: SODIUM CHLORIDE 1,000 ML IV SCH (16:23)
[2018-12-30] MEDS: INSULIN (NOVOLOG) ASPART 100 UNITS/ML 10ML VIAL SQ SCH (17:08)
[2018-12-30] MEDS: INSULIN SLIDING SCALE (NOVOLOG) 1 VIAL SQ SCH ×2 (17:09→21:35)
--- NOTE | 2018-12-30 17:29 | EKG ---
Test Reason : Blood Pressure : / mmHG Vent. Rate : 077 BPM Atrial Rate : 077 BPM P-R Int : 176 ms QRS Dur : 086 ms QT Int : 386 ms P-R-T Axes : 001 067 090 degrees QTc Int : 436 ms NORMAL SINUS RHYTHM CANNOT RULE OUT ANTERIOR INFARCT (CITED ON OR BEFORE 19-JAN-2017) ABNORMAL ECG WHEN COMPARED WITH ECG OF 19-JAN-2017 20:40, NO SIGNIFICANT CHANGE WAS FOUND Confirmed by AIDEN BAIRES MD ([id number]) on 12/30/2018 5:29:32 PM Referred By: Confirmed By:AIDEN BAIRES MD
[2018-12-30] MEDS: INSULIN (LEVEMIR) 100 UNITS/ML UNITS SQ SCH (21:35)
[2018-12-30] MEDS: ATORVASTATIN CA 40 MG TABLET (FP) PO SCH (21:35)
[2018-12-31] MEDS: INSULIN (NOVOLOG) ASPART 100 UNITS/ML 10ML VIAL SQ SCH ×2 (06:30→18:04)
[2018-12-31] MEDS: LEVOTHYROXINE NA 25 MCG TABLET (FP) PO SCH (06:30)
[2018-12-31] MEDS: INSULIN SLIDING SCALE (NOVOLOG) 1 VIAL SQ SCH ×4 (06:31→22:14)
[2018-12-31] MEDS: SODIUM CHLORIDE 1,000 ML IV SCH (06:31)
[2018-12-31] MEDS: LIRAGLUTIDE 0.6 MG/0.1 ML PEN.INJCTR SQ SCH (06:31)
[2018-12-31 06:51] LABS: BASO % 1.4 % (0-2.0); EOS % 9.3 % (0-4.5); HEMATOCRIT 36.7 % (35.4-49); HEMOGLOBIN 12.7 GM/dL (11.7-16.9); LYMPH % 29.4 % (8-40); MCH 28.8 pg (25.7-33.7); MCHC 34.4 g/dl (32.0-35.9); MEAN CELL VOLUME 83.6 fl (80-96); MEAN PLT VOLUME 8.3 fl (7.5-11.1); MONO % 10.4 % (3.8-10.2); NEUT % 49.5 % (42.8-82.8); PLATELET COUNT 306 K/MM3 (134-434); RBC 4.39 M/mm3 (4.00-5.60); RDW 13.8 % (11.9-15.9); WHITE BLOOD COUNT 8.3 K/mm3 (4.0-10.0)
--- NOTE | 2018-12-31 08:13 | CON.GU ---
Consult Consult Specialty:: urology Referred by:: [facility] Reason for Consultation:: left renal cyst with right lower quadrant discomfort - History of Present Illness Chief Complaint: left renal cyst with right lower quadrant pain History of Present Illness: Patient with longstanding history of large left renal cyst. Patient with increased right lower quadrant pain. Patient denies nausea, vomiting, fever, chills, or gross hematuria. Patient with mild frequency and urgency with nocturia x3. Patient denies recent uti. - History Source History Provided By: Patient Limitations to Obtaining History: No Limitations - Past Medical History Cardio/Vascular: Yes: HTN, Hyperlipdemia Endocrine: Yes: Diabetes Mellitus - Alcohol/Substance Use Hx Alcohol Use: No - Smoking History Smoking history: Unknown if ever smoked Have you smoked in the past 12 months: No Home Medications - Allergies Allergies/Adverse Reactions: Allergies Allergy/AdvReac Type Severity Reaction Status Date / Time No Known Allergies Allergy Verified 11/01/17 14:58 - Home Medications Home Medications: Ambulatory Orders Amlodipine Besylate [Norvasc -] 10 mg PO DAILY 01/19/17 Atorvastatin Ca [Lipitor] 40 mg PO HS 01/19/17 Insulin Glargine,Hum.rec.anlog [Lantus Solostar PEN -] 38 units SQ ACDIN Insulin Lispro [Humalog Kwikpen U-100] 12 unit SQ BID 01/19/17 Metformin HCl [Glucophage] 1,000 mg PO BID 01/19/17 Olmesartan Medoxomil [Benicar -] 40 mg PO DAILY 01/19/17 Fenofibrate,Micronized [Fenofibrate] 134 mg PO DAILY 11/01/17 Levothyroxine [Synthroid -] 25 mcg PO DAILY 11/01/17 Liraglutide [Victoza -] 1.8 mg SQ DAILY@0700 11/01/17 Aspirin [ASA -] 325 mg PO DAILY@0800 tablet 11/06/17 Losartan Potassium [Cozaar] 25 mg PO DAILY 12/30/18 Physical Exam- Vital Signs: Vital Signs Temperature 98.5 F 12/31/18 06:36 Pulse Rate 76 12/31/18 06:36 Respiratory Rate 20 12/31/18 06:36 Blood Pressure 161/79 12/31/18 06:36 O2 Sat by Pulse Oximetry (%) 97 12/30/18 21:00 Constitutional: Yes: No Distress, Calm Eyes: Yes: WNL, Conjunctiva Clear, EOM Intact HENT: Yes: WNL, Atraumatic, Normocephalic Neck: Yes: WNL, Supple, Trachea Midline Cardiovascular: Yes: WNL Respiratory: Yes: WNL Gastrointestinal: Yes: WNL, Normal Bowel Sounds (mild right lower quadrant discomfort to palpation), Soft Renal/: Yes: CVA Tenderness - Left Kidneys: Yes: Flank Pain Left Pelvis: Yes: Bladder Non Palpable Testicles: Yes: WNL Scrotum: Yes: WNL Penis: Yes: WNL (3+ prostate) Labs: CBC, BMP 12/31/18 05:40 Imaging - Results Cat Scan: Pending Assessment/Plan imp left renal cyst right lower quadrant discomfort plan will await CT report consider aspiration of left renal cyst will discuss with Drs. Carmen and Dominic 20 minutes devoted to patient
[2018-12-31] MEDS ORDERED: amLODIPine BESYLATE 10 MG TABLET (FP) PO SCH (10:00)
[2018-12-31] MEDS ORDERED: amLODIPine BESYLATE 5 MG TABLET (FP) PO SCH (10:00)
[2018-12-31 10:15] LABS: CHOLESTEROL 137 mg/dL (50-200); HDL CHOLESTEROL 33 mg/dL (40-60); TRIGLYCERIDES 253 mg/dL (0-150)
[2018-12-31 10:20] LABS: ALBUMIN 3.8 g/dl (3.4-5.0); ANION GAP 9 MMOL/L (8-16); BILIRUBIN,TOTAL 0.4 mg/dL (0.2-1); BLOOD UREA NITROGEN 19 mg/dL (7-18); CALCIUM 8.9 mg/dL (8.5-10.1); CHLORIDE 104 mmol/L (98-107); CO2 27 mmol/L (21-32); CREATININE 1.1 mg/dL (0.55-1.3); GLUCOSE,RANDOM 164 mg/dL (74-106); MAGNESIUM 1.8 mg/dL (1.8-2.4); POTASSIUM 3.8 mmol/L (3.5-5.1); SODIUM 140 mmol/L (136-145); TOT PROT 7.2 g/dl (6.4-8.2)
[2018-12-31 10:21] LABS: ALK PHOS 65 U/L (45-117); SGOT/AST 23 U/L (15-37); SGPT/ALT 38 U/L (13-61)
[2018-12-31] MEDS ORDERED: MIDAZOLAM HCL 2 MG/2 ML SINGLE DOSE VIAL IVPUSH ONE (11:45)
[2018-12-31] MEDS ORDERED: INSULIN (NOVOLOG) ASPART 100 UNITS/ML 10ML VIAL ONE (12:53)
[2018-12-31] MEDS ORDERED: ACETAMINOPHEN 325 MG TABLET (FP) PO PRN (17:21)
--- NOTE | 2018-12-31 17:21 | PN ---
Progress Note, Physician Chief Complaint: AWAKE ALERT C/O FLANK PAIN STILL - Current Medication List Current Medications: Active Medications Amlodipine Besylate (Norvasc -) 10 mg PO DAILY [facility] Last Admin: 12/31/18 11:38 Dose: 10 mg Atorvastatin Calcium (Lipitor -) 40 mg PO HS [facility] Last Admin: 12/30/18 21:35 Dose: 40 mg Insulin Aspart (Novolog Vial Sliding Scale -) 1 vial SQ ACHS [facility]; Protocol Last Admin: 12/31/18 12:52 Dose: Not Given Insulin Aspart (Novolog Vial) 12 units SQ BIDAC [facility]; Protocol Last Admin: 12/31/18 06:30 Dose: Not Given Insulin Detemir (Levemir Vial) 38 units SQ HS [facility] Last Admin: 12/30/18 21:35 Dose: Not Given Levothyroxine Sodium (Synthroid -) 25 mcg PO DAILY@0700 [facility] Last Admin: 12/31/18 06:30 Dose: 25 mcg Liraglutide (Victoza -) 1.8 mg SQ DAILY@0700 [facility] Last Admin: 12/31/18 06:31 Dose: Not Given - Objective Vital Signs: Vital Signs Temperature 98.4 F 12/31/18 12:56 Pulse Rate 73 12/31/18 12:56 Respiratory Rate 13 12/31/18 12:56 Blood Pressure 177/100 H 12/31/18 12:56 O2 Sat by Pulse Oximetry (%) 97 12/31/18 11:03 Constitutional: Yes: Mild Distress Eyes: Yes: WNL HENT: Yes: WNL Neck: Yes: WNL Cardiovascular: Yes: WNL Respiratory: Yes: WNL Gastrointestinal: Yes: Tenderness Genitourinary: Yes: WNL Musculoskeletal: Yes: Muscle Weakness Extremities: Yes: WNL Edema: Yes Integumentary: Yes: WNL Wound/Incision: Yes: Clean/Dry Neurological: Yes: Pre-Existing Deficit ...Motor Strength: LLE, RLE Psychiatric: Yes: WNL Labs: CBC, BMP 12/31/18 05:40 12/31/18 05:40 INR, PTT INR 0.94 (0.83-1.09) 12/30/18 12:14 Problem List - Problems (1) Flank pain, acute Code(s): R10.9 - UNSPECIFIED ABDOMINAL PAIN (2) Diabetes Code(s): E11.9 - TYPE 2 DIABETES MELLITUS WITHOUT COMPLICATIONS Qualifiers: Diabetes mellitus type: type 2 (3) HLD (hyperlipidemia) Code(s): E78.5 - HYPERLIPIDEMIA, UNSPECIFIED (4) HTN (hypertension) Code(s): I10 - ESSENTIAL (PRIMARY) HYPERTENSION (5) Hypothyroid Code(s): E03.9 - HYPOTHYROIDISM, UNSPECIFIED Assessment/Plan DRAINAGE RENAL CYST PAIN CONTROL LABS CHECK BGM OOB TO CHAIR PT EVAL
[2018-12-31] MEDS: ATORVASTATIN CA 40 MG TABLET (FP) PO SCH (21:17)
[2018-12-31] MEDS: INSULIN (LEVEMIR) 100 UNITS/ML UNITS SQ SCH (22:19)
[2019-01-01] MEDS: LEVOTHYROXINE NA 25 MCG TABLET (FP) PO SCH (06:09)
[2019-01-01] MEDS: INSULIN SLIDING SCALE (NOVOLOG) 1 VIAL SQ SCH (06:12)
[2019-01-01] MEDS: INSULIN (NOVOLOG) ASPART 100 UNITS/ML 10ML VIAL SQ SCH (06:12)
[2019-01-01] MEDS: LIRAGLUTIDE 0.6 MG/0.1 ML PEN.INJCTR SQ SCH (06:32)
[2019-01-01 06:35] VITALS: BP 145/72; PULSE 69; TEMP 97.7
[2019-01-01 07:45] LABS: HEMATOCRIT 34.9 % (35.4-49); HEMOGLOBIN 12.4 GM/dL (11.7-16.9); MCH 29.4 pg (25.7-33.7); MCHC 35.6 g/dl (32.0-35.9); MEAN CELL VOLUME 82.6 fl (80-96); MEAN PLT VOLUME 8.2 fl (7.5-11.1); PLATELET COUNT 264 K/MM3 (134-434); RBC 4.22 M/mm3 (4.00-5.60); RDW 13.9 % (11.9-15.9); WHITE BLOOD COUNT 7.5 K/mm3 (4.0-10.0)
[2019-01-01 08:15] LABS: ALBUMIN 3.4 g/dl (3.4-5.0); ALK PHOS 63 U/L (45-117); ANION GAP 8 MMOL/L (8-16); BILIRUBIN,TOTAL 0.4 mg/dL (0.2-1); BLOOD UREA NITROGEN 16 mg/dL (7-18); CALCIUM 8.2 mg/dL (8.5-10.1); CHLORIDE 104 mmol/L (98-107); CO2 29 mmol/L (21-32); CREATININE 1.1 mg/dL (0.55-1.3); GLUCOSE,RANDOM 152 mg/dL (74-106); POTASSIUM 3.4 mmol/L (3.5-5.1); SGOT/AST 19 U/L (15-37); SGPT/ALT 36 U/L (13-61); SODIUM 141 mmol/L (136-145)
--- NOTE | 2019-01-01 08:19 | DS ---
Physical Examination Vital Signs: Vital Signs Temperature 97.7 F 01/01/19 06:34 Pulse Rate 69 01/01/19 06:34 Respiratory Rate 18 01/01/19 06:34 Blood Pressure 145/72 01/01/19 06:34 O2 Sat by Pulse Oximetry (%) 97 12/31/18 21:00 Constitutional: Yes: No Distress Eyes: Yes: WNL HENT: Yes: WNL Neck: Yes: WNL Cardiovascular: Yes: WNL Respiratory: Yes: WNL Gastrointestinal: Yes: Abdomen, Obese Renal/: Yes: WNL Musculoskeletal: Yes: WNL Extremities: Yes: WNL Edema: No Peripheral Pulses WNL: Yes Integumentary: Yes: WNL Wound/Incision: Yes: Clean/Dry Neurological: Yes: WNL ...Motor Strength: WNL Psychiatric: Yes: WNL Labs: CBC, BMP 01/01/19 06:20 01/01/19 06:20 Discharge Summary Reason For Visit: RENAL CYST,ABDOMINAL PAIN Current Active Problems Diabetes (Acute) Flank pain, acute (Acute) HLD (hyperlipidemia) (Acute) HTN (hypertension) (Acute) Hypothyroid (Acute) Renal cyst (Acute) Procedures: Principal: DRAINAGE OF RENAL CYST Hospital Course: ADMITTED FOR ABDOMINAL DISCOMFORT, CT SCAN SHOWS LARGE RENAL CYST, DRAINED 1.5LITERS BY I.R. TOLERATED WELL Condition: Improved - Instructions Diet, Activity, Other Instructions: LOW SALT/ADA/LOW FAT Disposition: HOME - Home Medications Comprehensive Discharge Medication List: Ambulatory Orders Amlodipine Besylate [Norvasc -] 10 mg PO DAILY 01/19/17 Atorvastatin Ca [Lipitor] 40 mg PO HS 01/19/17 Insulin Glargine,Hum.rec.anlog [Lantus Solostar PEN -] 38 units SQ ACDIN Insulin Lispro [Humalog Kwikpen U-100] 12 unit SQ BID 01/19/17 Metformin HCl [Glucophage] 1,000 mg PO BID 01/19/17 Olmesartan Medoxomil [Benicar -] 40 mg PO DAILY 01/19/17 Fenofibrate,Micronized [Fenofibrate] 134 mg PO DAILY 11/01/17 Levothyroxine [Synthroid -] 25 mcg PO DAILY 11/01/17 Liraglutide [Victoza -] 1.8 mg SQ DAILY@0700 11/01/17 Aspirin [ASA -] 325 mg PO DAILY@0800 tablet 11/06/17 Losartan Potassium [Cozaar] 25 mg PO DAILY 12/30/18
== END 2019-01-01 10:23 | disposition home or self-care (01) | DRG 700 ==
LOC: JER 09:14 → JERBED 11:24 → J8W 12:33
PROVIDERS: ADMIT Student in an Organized Health Care Education/Training Program; ATTEND Student in an Organized Health Care Education/Training Program
PROC: 0T9130Z Drainage of Left Kidney with Drainage Device, Percutaneous Approach (ICD-10-PCS; principal; 2018-12-31)
DX: N28.1 Cyst of kidney, acquired (principal); I10 Essential (primary) hypertension; E11.9 Type 2 diabetes mellitus without complications; E03.9 Hypothyroidism, unspecified; R10.9 Unspecified abdominal pain; E78.5 Hyperlipidemia, unspecified
CPT/HCPCS: 36415; 49405; 74178-TC; 80053; 80061; 81003; 82962; 83036; 83721; 83735; 84443; 85025; 85027; 85610; 85730; 86850; 86900; 86901; 87070; 87075; 87086; 87205; 93005; 93010; 99282-25; J7030

== ENCOUNTER 2019-07-17 11:58 | Inpatient (IN) | payer OTHER ==
[2019-07-17 12:44] VITALS: BP 178/84; PULSE 78; TEMP 98.2; BMI 31.0
--- NOTE | 2019-07-17 13:25 | PDOC ---
History of Present Illness - General Chief Complaint: Shortness of Breath Stated Complaint: DIFF BREATHING Time Seen by Provider: 07/17/19 13:16 History Source: Patient Exam Limitations: No Limitations - History of Present Illness Initial Comments: 07/17/19 13:17 73YOM with h/o IDDM, HTN, HLD, hypothyroidism, and renal cyst who p/w SOB. Past History - Past Medical History Allergies/Adverse Reactions: Allergies Allergy/AdvReac Type Severity Reaction Status Date / Time No Known Allergies Allergy Verified 07/17/19 12:40 Home Medications: Ambulatory Orders Amlodipine Besylate [Norvasc -] 10 mg PO DAILY 01/19/17 Atorvastatin Ca [Lipitor] 40 mg PO HS 01/19/17 Insulin Glargine,Hum.rec.anlog [Lantus Solostar PEN -] 38 units SQ ACDIN Insulin Lispro [Humalog Kwikpen U-100] 12 unit SQ BID 01/19/17 Metformin HCl [Glucophage] 1,000 mg PO BID 01/19/17 Olmesartan Medoxomil [Benicar -] 40 mg PO DAILY 01/19/17 Fenofibrate,Micronized [Fenofibrate] 134 mg PO DAILY 11/01/17 Levothyroxine [Synthroid -] 25 mcg PO DAILY 11/01/17 Liraglutide [Victoza -] 1.8 mg SQ DAILY@0700 11/01/17 Aspirin [ASA -] 325 mg PO DAILY@0800 tablet 11/06/17 Losartan Potassium [Cozaar] 25 mg PO DAILY 12/30/18 Anemia: No Asthma: No Cancer: No Cardiac Disorders: No CVA: No COPD: No CHF: No Dementia: No Diabetes: Yes (DX AT AGE 49 IDDM) GI Disorders: No Disorders: No HTN: Yes Hypercholesterolemia: Yes Liver Disease: No Seizures: No Thyroid Disease: No - Surgical History Cardiac Surgery: (? CARDIAC CATH- 2015- NORMAL PER SON) - Immunization History Immunization Up to Date: Yes - Suicide/Smoking/Psychosocial Hx Smoking History: Never smoked Have you smoked in the past 12 months: No Information on smoking cessation initiated: No Hx Alcohol Use: No Drug/Substance Use Hx: No Substance Use Type: None Hx Substance Use Treatment: No *Physical Exam - Vital Signs Last Vital Signs Temp Pulse Resp BP Pulse Ox 98.2 F 78 17 178/84 H 93 L 07/17/19 12:40 07/17/19 12:40 07/17/19 12:40 07/17/19 12:40 07/17/19 12:40 *DC/Admit/Observation/Transfer - Referrals Referrals: Pelon Carmen MD [Primary Care Provider] - - Patient Instructions - Post Discharge Activity
--- NOTE | 2019-07-17 13:47 | PDOC ---
History of Present Illness - General Chief Complaint: Shortness of Breath Stated Complaint: DIFF BREATHING Time Seen by Provider: 07/17/19 13:16 History Source: Patient Exam Limitations: No Limitations - History of Present Illness Initial Comments: 07/17/19 13:41 73YOM with h/o IDDM, HTN, HLD, hypothyroidism, and renal cyst who p/w SOB at night. Pt states similar episode happened 2 months ago, went to [facility], admitted for 5 days and reports receiving a medication that made him urinate often, improved and sent home. Pt had stress test 06/16 with 62% EF and ischemic changes. Pt is not on lasix at home. Pt reports 3 nights of SOB when lying flat and on exertion, denies CP, abdominal pain changes in bowel or bladder habits Past History - Past Medical History Allergies/Adverse Reactions: Allergies Allergy/AdvReac Type Severity Reaction Status Date / Time No Known Allergies Allergy Verified 07/17/19 12:40 Home Medications: Ambulatory Orders Amlodipine Besylate [Norvasc -] 10 mg PO DAILY 01/19/17 Atorvastatin Ca [Lipitor] 40 mg PO HS 01/19/17 Insulin Glargine,Hum.rec.anlog [Lantus Solostar PEN -] 38 units SQ ACDIN Insulin Lispro [Humalog Kwikpen U-100] 12 unit SQ BID 01/19/17 Metformin HCl [Glucophage] 1,000 mg PO BID 01/19/17 Olmesartan Medoxomil [Benicar -] 40 mg PO DAILY 01/19/17 Fenofibrate,Micronized [Fenofibrate] 134 mg PO DAILY 11/01/17 Levothyroxine [Synthroid -] 25 mcg PO DAILY 11/01/17 Liraglutide [Victoza -] 1.8 mg SQ DAILY@0700 11/01/17 Aspirin [ASA -] 325 mg PO DAILY@0800 tablet 11/06/17 Losartan Potassium [Cozaar] 25 mg PO DAILY 12/30/18 Anemia: No Asthma: No Cancer: No Cardiac Disorders: No CVA: No COPD: No CHF: No Dementia: No Diabetes: Yes (DX AT AGE 49 IDDM) GI Disorders: No Disorders: No HTN: Yes Hypercholesterolemia: Yes Liver Disease: No Seizures: No Thyroid Disease: No - Surgical History Cardiac Surgery: (? CARDIAC CATH- 2015- NORMAL PER SON) - Immunization History Immunization Up to Date: Yes - Suicide/Smoking/Psychosocial Hx Smoking History: Never smoked Have you smoked in the past 12 months: No Information on smoking cessation initiated: No Hx Alcohol Use: No Drug/Substance Use Hx: No Substance Use Type: None Hx Substance Use Treatment: No Review of Systems - Review of Systems Constitutional: No: Chills, Fever Respiratory: Yes: Shortness of Breath Cardiac (ROS): No: Chest Pain, Palpitations, Syncope ABD/GI: No: Constipated, Diarrhea, Nausea, Vomiting : No: Burning, Dysuria, Discharge, Frequency, Flank Pain, Hematuria Neurological: No: Headache, Numbness, Paresthesia *Physical Exam - Vital Signs Last Vital Signs Temp Pulse Resp BP Pulse Ox 98.2 F 78 17 178/84 H 93 L 07/17/19 12:40 07/17/19 12:40 07/17/19 12:40 07/17/19 12:40 07/17/19 12:40 - Physical Exam General Appearance: Yes: Nourished, Appropriately Dressed. No: Apparent Distress HEENT: positive: EOMI Neck: positive: Supple. negative: Carotid bruit Respiratory/Chest: positive: Lungs Clear, Normal Breath Sounds. negative: Respiratory Distress, Accessory Muscle Use, Crackles, Rales, Rhonchi, Stridor, Wheezing Cardiovascular: positive: Regular Rhythm, Regular Rate, S1, S2. negative: Edema , JVD, Murmur Vascular Pulses: Dorsalis-Pedis (R): 3+, Doralis-Pedis (L): 3+ Gastrointestinal/Abdominal: positive: Flat, Soft. negative: Pulsatile Mass, Protuberent, Distended, Guarding, Rebound, Tenderness Musculoskeletal: negative: CVA Tenderness Extremity: positive: Normal Capillary Refill, Normal Inspection, Pedal Edema (1+ ) Integumentary: positive: Normal Color, Dry, Warm Neurologic: positive: Fully Oriented, Alert, Normal Mood/Affect, Normal Response ED Treatment Course - LABORATORY CBC & Chemistry Diagram: 07/17/19 15:07 07/17/19 15:07 - RADIOLOGY Radiology Studies Ordered: Category Date Time Status CHEST PA & LAT [RAD] Stat Radiology 07/17/19 13:30 Ordered Medical Decision Making - Medical Decision Making 07/17/19 16:46 73YOM with h/o IDDM, HTN, HLD, hypothyroidism, and renal cyst who p/w SOB at night. Pt states similar episode happened 2 months ago, went to [facility], admitted for 5 days and reports receiving a medication that made him urinate often, improved and sent home. Pt had stress test 06/16 with 62% EF and ischemic changes. Pt is not on lasix at home. Pt reports 3 nights of SOB when lying flat and on exertion, denies CP, abdominal pain changes in bowel or bladder habits vitals show elevated BP, repeat systolic in the 160s. Pt baseline systolic is 150s. Pt took medications today DDX INLT: ACS, CHF, PE (not tachy, not hypoxic) PNA labs WNL including trops and BNP EKG NSR without ischemic changes Pt sitting up in bed, not in distress. Pt does not have a hub borer Pt likely suffering from new onset CHF, will admit for cardiac workup Pt aware and is accepted for admission *DC/Admit/Observation/Transfer Diagnosis at time of Disposition: New onset of congestive heart failure - Discharge Dispostion Condition at time of disposition: Stable Decision to Admit order: Yes - Referrals Referrals: Pelon Carmen MD [Primary Care Provider] - - Patient Instructions - Post Discharge Activity
[2019-07-17 15:47] LABS: BASO % 1.4 % (0-2.0); EOS % 5.4 % (0-4.5); HEMATOCRIT 37.9 % (35.4-49); HEMOGLOBIN 12.7 GM/dL (11.7-16.9); MCH 27.5 pg (25.7-33.7); MCHC 33.5 g/dl (32.0-35.9); MEAN PLT VOLUME 8.1 fl (7.5-11.1); MONO % 8.9 % (3.8-10.2); NEUT % 52.3 % (42.8-82.8); PLATELET COUNT 359 K/MM3 (134-434); RBC 4.62 M/mm3 (4.00-5.60); RDW 14.8 % (11.9-15.9); WHITE BLOOD COUNT 7.8 K/mm3 (4.0-10.0)
--- NOTE | 2019-07-17 15:57 | PDOC ---
Documentation entered by Clara Livingston SCRIBE, acting as scribe for Sivan Jolly MD. Sivan Jolly MD: This documentation has been prepared by the Yara alvarenga Adrianna, SCRIBE, under my direction and personally reviewed by me in its entirety. I confirm that the documentation accurately reflects all work, treatment, procedures, and medical decision making performed by me. Attending Attestation - Resident Resident Name: FlorenciogiannaPrice - ED Attending Attestation I have performed the following: I have examined & evaluated the patient, The case was reviewed & discussed with the resident, I agree w/resident's findings & plan, Exceptions are as noted - HPI HPI: The patient is a 73 year old male, with a significant PMH of renal cyst s/p drainage by IR, HTN, HLD, DM2, GERD, hypothyroidism, and arthritis, who presents to the ED for evaluation of shortness of breath for 3 days. Patient endorses dyspnea on exertion, orthopnea, and associated bilateral ankle swelling. LAst night, he reports a sudden episode of SOB while lying down where he had to get up out of bed and go to the air conditioned room as he felt he was suffocating. Per EMR, stress test last month showed 63% EF and ischemic changes. Allergies: NKA, NKDA Surgical History: Cardiac cath Social History: Denies EtOH, tobacco, or illicit drug use PCP: Dr. Carmen - Physicial Exam PE: GENERAL: Awake, alert, and fully oriented, in no acute distress EYES: PERRLA, EOMI, sclera anicteric, conjunctiva clear ENT: Nares patent, oropharynx clear without exudates. Moist mucosa NECK: Normal ROM, supple, no lymphadenopathy, JVD, or masses LUNGS: Breath sounds equal, clear to auscultation bilaterally. No wheezes, and no crackles HEART: Regular rate and rhythm, normal S1 and S2, no murmurs, rubs or gallops ABDOMEN: Soft, nontender, normoactive bowel sounds. No guarding, no rebound. No masses EXTREMITIES: Normal range of motion, no edema. No clubbing or cyanosis. No cords , erythema, or tenderness. Equal pulses b/l BACK: No midline spinal tenderness in cervical/thoracic/lumbar region NEUROLOGICAL: Normal speech, cranial nerves intact, equal strength and sensation b/l SKIN: Warm, Dry, normal turgor, no rashes or lesions noted. - Medical Decision Making 07/17/19 15:41 73yo M hx HTN, HL, abnormal stress test 2 months ago presents to the ED with SOB , REYEZ, and paroxysmal nocturnal dyspnea for 3 days Vitals with elevated BP DDx includes CHF vs ACS vs PNA Plan for labs, XR, anticipate admission 07/17/19 16:33 +infiltrate at L lung base trop/bnp unimpressive Possible PNA, pt covered with ceftriaxone and azitrho, Dr. Morgan who had already admitted the pt was updated about the addition of abx Pt admitted for further mgmt Case discussed in detail with admitting physician including history, physical exam and ancillary studies. Admitting physician has assumed care for the patient, will follow all pending diagnostics and will complete the evaluation and treatment. Heart Score/ECG Review #1 07/17/19 16:34 Twelve-lead EKG was performed and reviewed by me. Normal sinus rhythm, rate 77. Normal axis and intervals. No ST elevations or T-wave inversions. ED Treatment Course - LABORATORY CBC & Chemistry Diagram: 07/17/19 15:07 07/17/19 15:07 - ADDITIONAL ORDERS Additional order review: Laboratory Results 07/17/19 15:07 B-Natriuretic Peptide 100.9 07/17/19 15:07 RBC 4.62 MCV 82.0 MCHC 33.5 RDW 14.8 MPV 8.1 Neutrophils % 52.3 Lymphocytes % 32.0 Monocytes % 8.9 Eosinophils % 5.4 H Basophils % 1.4 - RADIOLOGY Radiograph Interpretation: EXAM#: TYPE/EXAM: RESULT: [id number] RAD/CHEST X-RAY PORTABLE* Chest: Shortness of breath A single view of the chest is been submitted. Since the prior study of 01/19/2017 again noted is the prominent mediastinum with large heart, unfolded aorta and there may be some new atelectasis or infiltrate developing at the left base. The remainder the study is unchanged. Reported By: Jaxon Fair MD 07/17/19 16:13
[2019-07-17 16:04] LABS: N-TERMINAL BNP 100.9 pg/ml (5-125)
[2019-07-17 16:24] LABS: ALK PHOS 50 U/L (45-117); ANION GAP 10 MMOL/L (8-16); BILIRUBIN,TOTAL 0.3 mg/dL (0.2-1); BLOOD UREA NITROGEN 21.6 mg/dL (7-18); CALCIUM 9.3 mg/dL (8.5-10.1); CHLORIDE 106 mmol/L (98-107); CO2 28 mmol/L (21-32); CREATININE 1.3 mg/dL (0.55-1.3); GLUCOSE,RANDOM 90 mg/dL (74-106); POTASSIUM 3.9 mmol/L (3.5-5.1); SGOT/AST 22 U/L (15-37); SGPT/ALT 32 U/L (13-61); SODIUM 143 mmol/L (136-145); TOT PROT 7.9 g/dl (6.4-8.2)
--- NOTE | 2019-07-17 16:24 | HP ---
Admitting History and Physical - Admission Chief Complaint: came in for sob History of Present Illness: 73YOM with h/o IDDM, HTN, HLD, hypothyroidism, and renal cyst who p/w SOB at night. Pt states similar episode happened 2 months ago, went to [facility], admitted for 5 days and reports receiving a medication that made him urinate often, improved and sent home. Pt had stress test 06/16 with 62% EF and ischemic changes. Pt is not on lasix at home. Pt reports 3 nights of SOB when lying flat and on exertion, denies CP, abdominal pain changes in bowel or bladder habits patient went to [place] 4 months ago had the same problem was given a pill and then he got better, he says he has noticed his legs getting swollen History Source: Patient - Past Medical History Cardiovascular: Yes: HTN, Hyperlipdemia Endocrine: Yes: Diabetes Mellitus - Smoking History Smoking history: Never smoked Have you smoked in the past 12 months: No - Alcohol/Substance Use Hx Alcohol Use: No Home Medications - Allergies Allergies/Adverse Reactions: Allergies Allergy/AdvReac Type Severity Reaction Status Date / Time No Known Allergies Allergy Verified 07/17/19 12:40 - Home Medications Home Medications: Ambulatory Orders Amlodipine Besylate [Norvasc -] 10 mg PO DAILY 01/19/17 Atorvastatin Ca [Lipitor] 40 mg PO HS 01/19/17 Insulin Glargine,Hum.rec.anlog [Lantus Solostar PEN -] 38 units SQ ACDIN Insulin Lispro [Humalog Kwikpen U-100] 12 unit SQ BID 01/19/17 Metformin HCl [Glucophage] 1,000 mg PO BID 01/19/17 Olmesartan Medoxomil [Benicar -] 40 mg PO DAILY 01/19/17 Fenofibrate,Micronized [Fenofibrate] 134 mg PO DAILY 11/01/17 Levothyroxine [Synthroid -] 25 mcg PO DAILY 11/01/17 Liraglutide [Victoza -] 1.8 mg SQ DAILY@0700 11/01/17 Aspirin [ASA -] 325 mg PO DAILY@0800 tablet 11/06/17 Losartan Potassium [Cozaar] 25 mg PO DAILY 12/30/18 Review of Systems - Review of Systems Respiratory: reports: SOB Physical Examination Vital Signs: Vital Signs Temperature 98.2 F 07/17/19 12:40 Pulse Rate 78 07/17/19 12:40 Respiratory Rate 17 07/17/19 12:40 Blood Pressure 178/84 H 07/17/19 12:40 O2 Sat by Pulse Oximetry (%) 93 L 07/17/19 12:40 Constitutional: Yes: Calm Cardiovascular: Yes: Regular Rate and Rhythm, S1, S2 Respiratory: Yes: Rales Gastrointestinal: Yes: Normal Bowel Sounds, Soft Edema: Yes Edema: LLE: 2+, RLE: 2+ Neurological: Yes: Alert, Oriented Labs: CBC, BMP 07/17/19 15:07 Imaging - Results Chest X-ray: Report Reviewed Problem List - Problems (1) New onset of congestive heart failure Assessment/Plan: daily weight iv lasix Code(s): I50.9 - HEART FAILURE, UNSPECIFIED (2) Diabetes Assessment/Plan: sliding sclae bgm hgba1c levemir Code(s): E11.9 - TYPE 2 DIABETES MELLITUS WITHOUT COMPLICATIONS (3) HLD (hyperlipidemia) Assessment/Plan: statin lipidpanel Code(s): E78.5 - HYPERLIPIDEMIA, UNSPECIFIED (4) HTN (hypertension) Assessment/Plan: cozaar stop norvasc bc leg edema hydralazine Code(s): I10 - ESSENTIAL (PRIMARY) HYPERTENSION (5) Hypothyroid Assessment/Plan: synthroid tsh Code(s): E03.9 - HYPOTHYROIDISM, UNSPECIFIED
[2019-07-17] MEDS ORDERED: ATORVASTATIN CA 40 MG TABLET (FP) PO ONE (16:26)
[2019-07-17] MEDS ORDERED: CEFTRIAXONE 1,000 MG in DEXTROSE 5%-WATER - 50 ML IVPB ONE (16:29)
[2019-07-17] MEDS ORDERED: AZITHROMYCIN IVPB 500 MG in DEXTROSE 5%-WATER - 250 ML IVPB ONE (16:29)
[2019-07-17] MEDS ORDERED: FUROSEMIDE 40 MG/4 ML INJECTABLE VIAL IVPUSH SCH (16:30)
[2019-07-17] MEDS ORDERED: INSULIN SLIDING SCALE (NOVOLOG) 1 VIAL SQ SCH (16:30)
--- NOTE | 2019-07-17 16:59 | EKG ---
Test Reason : Blood Pressure : / mmHG Vent. Rate : 077 BPM Atrial Rate : 077 BPM P-R Int : 164 ms QRS Dur : 090 ms QT Int : 416 ms P-R-T Axes : 053 077 093 degrees QTc Int : 470 ms NORMAL SINUS RHYTHM NORMAL ECG WHEN COMPARED WITH ECG OF 30-DEC-2018 11:52, NO SIGNIFICANT CHANGE WAS FOUND Confirmed by RAMA HARMAN MD ([id number]) on 07/17/2019 4:58:55 PM Referred By: Confirmed By:RAMA HARMAN MD
[2019-07-17] MEDS ORDERED: ATORVASTATIN CA 40 MG TABLET (FP) ONE (18:01)
[2019-07-17] MEDS ORDERED: FUROSEMIDE 40 MG/4 ML INJECTABLE VIAL ONE (18:01)
[2019-07-17] MEDS ORDERED: CEFTRIAXONE 1 GM/50 ML BAG ONE (18:01)
[2019-07-17] MEDS ORDERED: AZITHROMYCIN IVPB 500 MG/250 ML BAG IVPB ONE (18:49)
[2019-07-17] MEDS ORDERED: HEPARIN NA (PORCINE) 5,000 UNITS/ML 1ML VIAL SQ SCH (22:00)
[2019-07-17] MEDS ORDERED: hydrALAZINE HCL 25 MG TABLET (FP) PO SCH (22:00)
[2019-07-17] MEDS ORDERED: INSULIN (LEVEMIR) 100 UNITS/ML UNITS SQ SCH (22:00)
--- NOTE | 2019-07-17 22:16 | HOSP ---
Subjective - Review of Symptoms Events since last encounter: Hospital Encounter Was notified by the RN that the patient wants to sign out AMA. Arrived to ED, per the RN, the patient signed an AMA form with the ED staff Patient left the ED at 21:00 per RN, before I could speak with him. Physical Examination Vital Signs: Vital Signs Temperature 98.2 F 07/17/19 12:40 Pulse Rate 78 07/17/19 12:40 Respiratory Rate 17 07/17/19 12:40 Blood Pressure 178/84 H 07/17/19 12:40 O2 Sat by Pulse Oximetry (%) 99 07/17/19 16:40 Labs: CBC, BMP 07/17/19 15:07 07/17/19 15:07
[2019-07-18] MEDS ORDERED: LEVOTHYROXINE NA 25 MCG TABLET (FP) PO SCH (06:00)
== END 2019-07-17 16:08 | disposition left against medical advice (07) | DRG 291 ==
LOC: JER 11:58 → JERBED 14:01
PROVIDERS: ADMIT Student in an Organized Health Care Education/Training Program; ATTEND Student in an Organized Health Care Education/Training Program
DX: I11.0 Hypertensive heart disease with heart failure (principal); J18.9 Pneumonia, unspecified organism; J98.11 Atelectasis; I50.9 Heart failure, unspecified; E11.9 Type 2 diabetes mellitus without complications; E78.5 Hyperlipidemia, unspecified; E03.9 Hypothyroidism, unspecified; N28.1 Cyst of kidney, acquired; Z79.4 Long term (current) use of insulin; Z79.84 Long term (current) use of oral hypoglycemic drugs
CPT/HCPCS: 36415; 71045-TC-FY; 80053; 80061; 82550; 82962; 83036; 83721; 83880; 84484; 85025; 93005; 93010; 99283-25

== ENCOUNTER 2022-04-25 10:34 | Inpatient (IN) | payer OTHER ==
[2022-04-25 10:40] VITALS: BMI 30.5
[2022-04-25] MEDS: SODIUM CHLORIDE 1,000 ML IV SCH (11:00)
[2022-04-25 11:17] LABS: BASO % 0.8 % (0-2.0); EOS % 3.8 % (0-4.5); HEMATOCRIT 37.5 % (35.4-49); HEMOGLOBIN 12.6 GM/dL (11.7-16.9); LYMPH % 16.6 % (8-40); MCH 27.5 pg (25.7-33.7); MCHC 33.6 g/dl (32.0-35.9); MEAN CELL VOLUME 81.8 fl (80-96); MEAN PLT VOLUME 8.1 fl (7.5-11.1); MONO % 7.8 % (3.8-10.2); PLATELET COUNT 290 10^3/uL (134-434); RBC 4.59 M/mm3 (4.00-5.60); RDW 14.2 % (11.9-15.9); WHITE BLOOD COUNT 8.8 K/mm3 (4.0-10.0)
[2022-04-25 11:33] LABS: ACTIVATED PTT 28.5 SECONDS (25.2-36.5); INR 0.96 (0.83-1.09)
[2022-04-25 11:38] LABS: CALCIUM 9.1 mg/dL (8.5-10.1)
[2022-04-25 11:39] LABS: ALBUMIN 3.6 g/dl (3.4-5.0); BLOOD UREA NITROGEN 19.7 mg/dL (7-18)
[2022-04-25 11:42] LABS: CREATININE 1.1 mg/dL (0.55-1.3)
[2022-04-25 11:43] LABS: BILIRUBIN,TOTAL 0.4 mg/dL (0.2-1); TOT PROT 7.2 g/dl (6.4-8.2)
[2022-04-25] MEDS ORDERED: ASPIRIN 81 MG CHEWABLE TABLETS ONE (13:36)
[2022-04-25 17:02] LABS: URINE APPEARANCE CLEAR; URINE BILIRUBIN NEGATIVE (NEGATIVE); URINE COLOR YELLOW; URINE GLUCOSE (UA) 250 (NEGATIVE); URINE KETONE NEGATIVE (NEGATIVE)
[2022-04-25 17:03] LABS: PH,URINE 5.5 (5.0-8.0); URINE LEUK ESTERASE NEGATIVE (NEGATIVE); URINE NITRITE NEGATIVE (NEGATIVE); URINE PROTEIN 100 (NEGATIVE); URINE UROBILINOGEN 0.2 mg/dL (0.2-1.0)
[2022-04-25] MEDS ORDERED: ASPIRIN/DIPYRIDAMOLE 25 MG/200 MG CAPSULE PO SCH (22:00)
[2022-04-25] MEDS ORDERED: ASPIRIN/DIPYRIDAMOLE 25 MG/200 MG CAPSULE ONE (23:19)
[2022-04-25] MEDS ORDERED: ATORVASTATIN CA 40 MG TABLET (FP) ONE (23:19)
[2022-04-25] MEDS ORDERED: HEPARIN NA (PORCINE) 5,000 UNITS/ML 1ML VIAL ONE (23:20)
[2022-04-25] MEDS: HEPARIN NA (PORCINE) 5,000 UNITS/ML 1ML VIAL SQ SCH (23:31)
[2022-04-25] MEDS: ATORVASTATIN CA 40 MG TABLET (FP) PO SCH (23:32)
[2022-04-26] MEDS: LEVOTHYROXINE NA 25 MCG TABLET (FP) PO SCH (06:25)
[2022-04-26] MEDS: METOPROLOL TARTRATE 25 MG TABLET (FP) PO SCH ×2 (10:30→21:25)
[2022-04-26] MEDS: ASPIRIN COATED 81 MG TABLET.EC PO SCH (10:30)
[2022-04-26] MEDS: CLOPIDOGREL BISULFATE 75 MG TABLET (FP) PO SCH (10:30)
[2022-04-26] MEDS: POLYETHYLENE GLYCOL (HEALTHYLAX) 3350 17 GM PACKET PO SCH (10:30)
[2022-04-26] MEDS: HEPARIN NA (PORCINE) 5,000 UNITS/ML 1ML VIAL SQ SCH ×2 (10:30→21:25)
[2022-04-26] MEDS: amLODIPine BESYLATE 10 MG TABLET (FP) PO SCH (10:30)
[2022-04-26] MEDS: LOSARTAN POTASSIUM 50 MG TABLET PO SCH (10:30)
[2022-04-26] MEDS: PANTOPRAZOLE 20 MG TABLET PO SCH (10:30)
[2022-04-26 12:48] LABS: HEMOGLOBIN 12.5 GM/dL (11.7-16.9); MCH 27.4 pg (25.7-33.7); MCHC 33.7 g/dl (32.0-35.9); MEAN CELL VOLUME 81.3 fl (80-96); PLATELET COUNT 278 10^3/uL (134-434); RBC 4.55 M/mm3 (4.00-5.60); RDW 14.2 % (11.9-15.9); WHITE BLOOD COUNT 7.1 K/mm3 (4.0-10.0)
[2022-04-26 13:09] LABS: CALCIUM 8.8 mg/dL (8.5-10.1)
[2022-04-26 13:16] LABS: BLOOD UREA NITROGEN 14.3 mg/dL (7-18)
[2022-04-26] MEDS: SODIUM CHLORIDE 1,000 ML IV SCH (13:28)
[2022-04-26] MEDS: ATORVASTATIN CA 40 MG TABLET (FP) PO SCH (21:25)
[2022-04-27] MEDS: LEVOTHYROXINE NA 25 MCG TABLET (FP) PO SCH (06:37)
[2022-04-27] MEDS: LOSARTAN POTASSIUM 50 MG TABLET PO SCH (09:19)
[2022-04-27] MEDS: PANTOPRAZOLE 20 MG TABLET PO SCH (09:19)
[2022-04-27] MEDS: HEPARIN NA (PORCINE) 5,000 UNITS/ML 1ML VIAL SQ SCH ×2 (09:19→22:28)
[2022-04-27] MEDS: METOPROLOL TARTRATE 25 MG TABLET (FP) PO SCH ×2 (09:19→22:28)
[2022-04-27] MEDS: ASPIRIN COATED 81 MG TABLET.EC PO SCH (09:19)
[2022-04-27] MEDS: CLOPIDOGREL BISULFATE 75 MG TABLET (FP) PO SCH (09:19)
[2022-04-27] MEDS: POLYETHYLENE GLYCOL (HEALTHYLAX) 3350 17 GM PACKET PO SCH (09:20)
[2022-04-27] MEDS: amLODIPine BESYLATE 10 MG TABLET (FP) PO SCH (09:20)
[2022-04-27] MEDS: INSULIN (LEVEMIR) 100 UNITS/ML UNITS SQ SCH ×2 (09:21→22:29)
[2022-04-27] MEDS ORDERED: METHYL SALICYLATE/MENTHOL OINT 30 GM TUBE TP PRN (11:47)
[2022-04-27] MEDS ORDERED: metFORMIN HCL 500 MG TABLET (FP) PO SCH ×2 (16:30)
[2022-04-27] MEDS ORDERED: OMEGA-3 ACID ETHYL ESTERS (FATTY-ACIDS) 1 GM CAPSULE (FP) PO SCH (22:00)
[2022-04-27] MEDS: ATORVASTATIN CA 40 MG TABLET (FP) PO SCH (22:28)
[2022-04-28] MEDS ORDERED: METHYL SALICYLATE/MENTHOL OINT 30 GM TUBE TP PRN (02:26)
[2022-04-28] MEDS: metFORMIN HCL 500 MG TABLET (FP) PO SCH ×2 (06:42→16:34)
[2022-04-28] MEDS ORDERED: INSULIN (LEVEMIR) 100 UNITS/ML UNITS SQ SCH (07:00)
[2022-04-28] MEDS ORDERED: LEVOTHYROXINE NA 25 MCG TABLET (FP) PO SCH (07:00)
[2022-04-28] MEDS ORDERED: sitaGLIPtin PHOSPHATE 50 MG TABLET PO SCH ×2 (07:00)
[2022-04-28] MEDS ORDERED: LOSARTAN POTASSIUM 50 MG TABLET PO SCH (10:00)
[2022-04-28] MEDS ORDERED: ASPIRIN COATED 81 MG TABLET.EC PO SCH (10:00)
[2022-04-28] MEDS ORDERED: PANTOPRAZOLE 20 MG TABLET PO SCH (10:00)
[2022-04-28] MEDS ORDERED: HEPARIN NA (PORCINE) 5,000 UNITS/ML 1ML VIAL SQ SCH (10:00)
[2022-04-28] MEDS ORDERED: CLOPIDOGREL BISULFATE 75 MG TABLET (FP) PO SCH (10:00)
[2022-04-28] MEDS ORDERED: METOPROLOL TARTRATE 25 MG TABLET (FP) PO SCH (10:00)
[2022-04-28] MEDS ORDERED: POLYETHYLENE GLYCOL (HEALTHYLAX) 3350 17 GM PACKET PO SCH (10:00)
[2022-04-28] MEDS ORDERED: amLODIPine BESYLATE 10 MG TABLET (FP) PO SCH (10:00)
[2022-04-28] MEDS ORDERED: OMEGA-3 ACID ETHYL ESTERS (FATTY-ACIDS) 1 GM CAPSULE (FP) PO SCH (10:00)
[2022-04-28 14:45] VITALS: BP 154/79; PULSE 88; TEMP 98.9
[2022-04-28] MEDS ORDERED: ATORVASTATIN CA 40 MG TABLET (FP) PO SCH (22:00)
== END 2022-04-28 18:49 | DRG 66 ==
LOC: JER 10:34 → JERBED 15:16 → J4W 04-26 05:30 → J5S 04-28 02:00
PROVIDERS: ADMIT Family Medicine; ATTEND Family Medicine
DX: I63.89 Other cerebral infarction (principal); R29.703 NIHSS score 3; I10 Essential (primary) hypertension; E03.9 Hypothyroidism, unspecified; E78.5 Hyperlipidemia, unspecified; K21.9 Gastro-esophageal reflux disease without esophagitis; E11.9 Type 2 diabetes mellitus without complications; N28.1 Cyst of kidney, acquired
CPT/HCPCS: 36415; 70450-TC; 70496-TC; 70498-TC; 70551-TC; 80048; 80053; 80061; 81003; 82962; 83036; 84443; 84484; 85025; 85027; 85610; 85730; 93005; 93010; 93306-TC; 97116-GP; 97162-GP; 99285-25; C9803-CS; J1644; Q9967; U0003; U0005

== ENCOUNTER 2023-09-19 01:53 | Inpatient (IN) | payer OTHER ==
[2023-09-19 02:02] VITALS: BMI 32.5
[2023-09-19] MEDS ORDERED: LACTATED RINGERS SOLUTION 1000 ML INFUS.BAG IV ONE (03:07)
[2023-09-19] MEDS ORDERED: ACETAMINOPHEN 1000 MG/100 ML BAG IVPB ONE (03:07)
[2023-09-19] MEDS ORDERED: ACETAMINOPHEN INJECTION 100 ML IVPB ONE (03:22)
[2023-09-19 03:31] LABS: BASO % 0.3 % (0-2.0); EOS % 0.4 % (0-4.5); HEMATOCRIT 42.4 % (35.4-49); HEMOGLOBIN 13.8 GM/dL (11.7-16.9); LYMPH % 6.9 % (8-40); MCH 26.5 pg (25.7-33.7); MCHC 32.7 g/dl (32.0-35.9); MEAN CELL VOLUME 81.2 fl (80-96); MEAN PLT VOLUME 8.7 fl (7.5-11.1); MONO % 7.4 % (3.8-10.2); PLATELET COUNT 393 10^3/uL (134-434); RBC 5.22 M/mm3 (4.00-5.60); RDW 14.7 % (11.9-15.9); WHITE BLOOD COUNT 16.3 K/mm3 (4.0-10.0)
[2023-09-19 03:33] LABS: EPI CELLS 8 /uL (0-25.1); HYALINE CASTS 0 /uL (0-3.1); PH,URINE 7.5 (5.0-8.0); URINE APPEARANCE CLEAR; URINE BACTERIA 1455 /uL (0-1359); URINE BILIRUBIN NEGATIVE (NEGATIVE); URINE COLOR YELLOW; URINE GLUCOSE (UA) 3+ (NEGATIVE); URINE KETONE NEGATIVE (NEGATIVE); URINE LEUK ESTERASE NEGATIVE (NEGATIVE); URINE NITRITE NEGATIVE (NEGATIVE); URINE PROTEIN 1+ (NEGATIVE); URINE RBC 13 /uL (0-23.9)
[2023-09-19 03:34] LABS: VENOUS BASE EXCESS -2.1 mmol/L (-2-2); VENOUS PCO2 43.4 mmHg (38-52); VENOUS PH 7.352 (7.310-7.410)
[2023-09-19 03:40] LABS: INR 0.99 (0.83-1.09); PROTHROMBIN TIME (PATIENT) 11.5 SEC (9.7-13.0)
[2023-09-19 03:43] LABS: ACTIVATED PTT 27.8 SECONDS (25.2-36.5)
[2023-09-19 04:54] LABS: POTASSIUM 4.1 mmol/L (3.5-5.1)
[2023-09-19 04:56] LABS: CALCIUM 9.5 mg/dL (8.5-10.1)
[2023-09-19 04:57] LABS: BLOOD UREA NITROGEN 19.8 mg/dL (7-18)
[2023-09-19 05:00] LABS: CREATININE 1.6 mg/dL (0.55-1.3)
[2023-09-19 05:01] LABS: BILIRUBIN,TOTAL 0.4 mg/dL (0.2-1); TOT PROT 8.2 g/dl (6.4-8.2)
[2023-09-19] MEDS ORDERED: PIPERACILLIN/TAZOB 4.5 GM 4.5 GM in DEXTROSE 5%-WATER 100 ML IVPB ONE (05:15)
[2023-09-19] MEDS ORDERED: VANCOMYCIN PREMIX 1.75 GM 1,750 MG/350 ML PIGGYBACK IVPB ONE (05:17)
[2023-09-19] MEDS ORDERED: PIPERACILLIN/TAZOB 4.5 GM 4.5 GM/100 ML BAG IVPB ONE (05:18)
[2023-09-19] MEDS ORDERED: VANCOMYCIN/WATER 1250 MG 1,250 MG/250 ML BAG IVPB ONE (05:32)
[2023-09-19 05:53] LABS: LACTIC ACID 2.7 mmol/L (0.4-2.0)
[2023-09-19] MEDS ORDERED: AZITHROMYCIN IVPB 500 MG in DEXTROSE 5%-WATER - 250 ML IVPB ONE (06:48)
[2023-09-19] MEDS ORDERED: AZITHROMYCIN IVPB 500 MG/250 ML BAG IVPB ONE (07:23)
[2023-09-19] MEDS ORDERED: ACETAMINOPHEN 325 MG TABLET (FP) PO PRN (09:31)
[2023-09-19] MEDS ORDERED: ONDANSETRON 4 MG/2 ML VIAL IVPB PRN (09:34)
[2023-09-19] MEDS ORDERED: PANTOPRAZOLE 40 MG TABLET PO ONE ×3 (10:20→11:25)
[2023-09-19] MEDS ORDERED: METOPROLOL TARTRATE 25 MG TABLET (FP) ONE (10:20)
[2023-09-19] MEDS ORDERED: amLODIPine BESYLATE 5 MG TABLET (FP) ONE (10:20)
[2023-09-19] MEDS ORDERED: LOSARTAN POTASSIUM 50 MG TABLET ONE (10:21)
[2023-09-19] MEDS ORDERED: CLOPIDOGREL BISULFATE 75 MG TABLET (FP) ONE (10:21)
[2023-09-19] MEDS: amLODIPine BESYLATE 5 MG TABLET (FP) PO SCH (10:30)
[2023-09-19] MEDS: CLOPIDOGREL BISULFATE 75 MG TABLET (FP) PO SCH (10:30)
[2023-09-19] MEDS: METOPROLOL TARTRATE 25 MG TABLET (FP) PO SCH ×2 (10:30→21:42)
[2023-09-19] MEDS: LOSARTAN POTASSIUM 50 MG TABLET PO SCH (10:30)
[2023-09-19] MEDS ORDERED: INSULIN (LEVEMIR) 100 UNITS/ML UNITS SQ ONE (10:33)
[2023-09-19] MEDS: INSULIN (LEVEMIR) 100 UNITS/ML UNITS SQ SCH ×2 (10:38→21:43)
[2023-09-19] MEDS: PANTOPRAZOLE 40 MG TABLET PO SCH (11:28)
[2023-09-19] MEDS: INSULIN SLIDING SCALE (NOVOLOG) 1 VIAL SQ SCH ×3 (12:45→21:49)
[2023-09-19] MEDS: LACTATED RINGERS SOLUTION 1,000 ML/1,000 ML INFUS.BAG IV SCH (14:27)
[2023-09-19] MEDS ORDERED: CEFTRIAXONE 1 GM/50 ML BAG ONE (15:19)
[2023-09-19] MEDS: CEFTRIAXONE 1 GM in DEXTROSE 5%-WATER - 50 ML IVPB SCH (15:20)
[2023-09-19] MEDS ORDERED: INSULIN (NOVOLOG) ASPART 100 UNITS/ML 10ML VIAL ONE (21:22)
[2023-09-19] MEDS: ATORVASTATIN CA 40 MG TABLET (FP) PO SCH (21:42)
[2023-09-20] MEDS: LEVOTHYROXINE NA 25 MCG TABLET (FP) PO SCH (06:14)
[2023-09-20] MEDS: INSULIN SLIDING SCALE (NOVOLOG) 1 VIAL SQ SCH ×4 (06:21→21:42)
[2023-09-20] MEDS: CLOPIDOGREL BISULFATE 75 MG TABLET (FP) PO SCH (09:10)
[2023-09-20] MEDS: PANTOPRAZOLE 40 MG TABLET PO SCH (09:10)
[2023-09-20] MEDS: LOSARTAN POTASSIUM 50 MG TABLET PO SCH (09:10)
[2023-09-20] MEDS: METOPROLOL TARTRATE 25 MG TABLET (FP) PO SCH ×2 (09:10→21:44)
[2023-09-20] MEDS: amLODIPine BESYLATE 5 MG TABLET (FP) PO SCH (09:10)
[2023-09-20] MEDS: LACTATED RINGERS SOLUTION 1,000 ML/1,000 ML INFUS.BAG IV SCH ×2 (10:04→14:28)
[2023-09-20] MEDS: INSULIN (LEVEMIR) 100 UNITS/ML UNITS SQ SCH ×2 (10:59→22:29)
[2023-09-20] MEDS: CEFTRIAXONE 1 GM in DEXTROSE 5%-WATER - 50 ML IVPB SCH (11:08)
[2023-09-20 12:43] LABS: POTASSIUM 3.7 mmol/L (3.5-5.1)
[2023-09-20 12:49] LABS: HEMATOCRIT 38.5 % (35.4-49); HEMOGLOBIN 12.6 GM/dL (11.7-16.9); MCH 26.4 pg (25.7-33.7); MCHC 32.8 g/dl (32.0-35.9); MEAN CELL VOLUME 80.4 fl (80-96); MEAN PLT VOLUME 8.5 fl (7.5-11.1); PLATELET COUNT 329 10^3/uL (134-434); RBC 4.79 M/mm3 (4.00-5.60); RDW 14.7 % (11.9-15.9); WHITE BLOOD COUNT 17.9 K/mm3 (4.0-10.0)
[2023-09-20 12:51] LABS: CALCIUM 9.4 mg/dL (8.5-10.1)
[2023-09-20 12:52] LABS: ALBUMIN 3.2 g/dl (3.4-5.0); BLOOD UREA NITROGEN 18.6 mg/dL (7-18); MAGNESIUM 2.2 mg/dL (1.8-2.4)
[2023-09-20 12:54] LABS: CREATININE 1.3 mg/dL (0.55-1.3)
[2023-09-20 12:56] LABS: BILIRUBIN,TOTAL 0.8 mg/dL (0.2-1)
[2023-09-20] MEDS: ATORVASTATIN CA 40 MG TABLET (FP) PO SCH (21:44)
[2023-09-20] MEDS ORDERED: INSULIN (NOVOLOG) ASPART 100 UNITS/ML 10ML VIAL ONE (22:35)
[2023-09-21] MEDS: INSULIN SLIDING SCALE (NOVOLOG) 1 VIAL SQ SCH ×4 (06:46→21:58)
[2023-09-21] MEDS: INSULIN (LEVEMIR) 100 UNITS/ML UNITS SQ SCH ×2 (06:50→21:43)
[2023-09-21] MEDS: LEVOTHYROXINE NA 25 MCG TABLET (FP) PO SCH (06:50)
[2023-09-21] MEDS: METOPROLOL TARTRATE 25 MG TABLET (FP) PO SCH ×2 (09:51→21:43)
[2023-09-21] MEDS: LOSARTAN POTASSIUM 50 MG TABLET PO SCH (09:51)
[2023-09-21] MEDS: PANTOPRAZOLE 40 MG TABLET PO SCH (09:51)
[2023-09-21] MEDS: amLODIPine BESYLATE 5 MG TABLET (FP) PO SCH (09:52)
[2023-09-21] MEDS: CEFTRIAXONE 1 GM in DEXTROSE 5%-WATER - 50 ML IVPB SCH (09:52)
[2023-09-21] MEDS: CLOPIDOGREL BISULFATE 75 MG TABLET (FP) PO SCH (09:52)
[2023-09-21] MEDS: LACTATED RINGERS SOLUTION 1,000 ML/1,000 ML INFUS.BAG IV SCH (13:49)
[2023-09-21] MEDS ORDERED: INSULIN (NOVOLOG) ASPART 100 UNITS/ML 10ML VIAL ONE ×2 (17:25→21:52)
[2023-09-21] MEDS: ATORVASTATIN CA 40 MG TABLET (FP) PO SCH (21:43)
[2023-09-22] MEDS: INSULIN SLIDING SCALE (NOVOLOG) 1 VIAL SQ SCH ×4 (06:52→21:09)
[2023-09-22] MEDS: INSULIN (LEVEMIR) 100 UNITS/ML UNITS SQ SCH ×2 (06:58→21:08)
[2023-09-22] MEDS: LEVOTHYROXINE NA 25 MCG TABLET (FP) PO SCH (07:04)
[2023-09-22 08:55] LABS: BASO % 0.8 % (0-2.0); EOS % 8.7 % (0-4.5); HEMOGLOBIN 13.2 GM/dL (11.7-16.9); LYMPH % 14.4 % (8-40); MCH 26.6 pg (25.7-33.7); MCHC 33.1 g/dl (32.0-35.9); MEAN CELL VOLUME 80.5 fl (80-96); MEAN PLT VOLUME 8.3 fl (7.5-11.1); MONO % 11.7 % (3.8-10.2); NEUT % 64.4 % (42.8-82.8); PLATELET COUNT 351 10^3/uL (134-434); RBC 4.97 M/mm3 (4.00-5.60); WHITE BLOOD COUNT 9.7 K/mm3 (4.0-10.0)
[2023-09-22 08:56] LABS: HEMATOCRIT 38.2 % (35.4-49); HEMOGLOBIN 12.5 GM/dL (11.7-16.9); MCH 26.3 pg (25.7-33.7); MCHC 32.8 g/dl (32.0-35.9); MEAN CELL VOLUME 80.2 fl (80-96); MEAN PLT VOLUME 8.4 fl (7.5-11.1); PLATELET COUNT 337 10^3/uL (134-434); RBC 4.77 M/mm3 (4.00-5.60); WHITE BLOOD COUNT 9.7 K/mm3 (4.0-10.0)
[2023-09-22 09:21] LABS: POTASSIUM 3.9 mmol/L (3.5-5.1)
[2023-09-22 09:26] LABS: CALCIUM 8.6 mg/dL (8.5-10.1); CREATININE 1.1 mg/dL (0.55-1.3); MAGNESIUM 2.4 mg/dL (1.8-2.4)
[2023-09-22 09:27] LABS: BLOOD UREA NITROGEN 22.8 mg/dL (7-18)
[2023-09-22 09:28] LABS: TOT PROT 6.6 g/dl (6.4-8.2)
[2023-09-22 09:29] LABS: BILIRUBIN,TOTAL 0.2 mg/dL (0.2-1)
[2023-09-22 09:30] LABS: ALBUMIN 2.7 g/dl (3.4-5.0)
[2023-09-22] MEDS: METOPROLOL TARTRATE 25 MG TABLET (FP) PO SCH ×2 (09:37→21:06)
[2023-09-22] MEDS: PANTOPRAZOLE 40 MG TABLET PO SCH (09:37)
[2023-09-22] MEDS: CLOPIDOGREL BISULFATE 75 MG TABLET (FP) PO SCH (09:37)
[2023-09-22] MEDS: amLODIPine BESYLATE 5 MG TABLET (FP) PO SCH (09:37)
[2023-09-22] MEDS: CEFTRIAXONE 1 GM in DEXTROSE 5%-WATER - 50 ML IVPB SCH (09:37)
[2023-09-22] MEDS: LOSARTAN POTASSIUM 50 MG TABLET PO SCH (09:37)
[2023-09-22] MEDS: LACTATED RINGERS SOLUTION 1,000 ML/1,000 ML INFUS.BAG IV SCH ×2 (15:39→21:06)
[2023-09-22] MEDS ORDERED: INSULIN (NOVOLOG) ASPART 100 UNITS/ML 10ML VIAL ONE (20:43)
[2023-09-22] MEDS: ATORVASTATIN CA 40 MG TABLET (FP) PO SCH (21:06)
[2023-09-23 02:56] VITALS: RESP 18
[2023-09-23] MEDS: INSULIN SLIDING SCALE (NOVOLOG) 1 VIAL SQ SCH ×2 (06:22→12:20)
[2023-09-23] MEDS: LEVOTHYROXINE NA 25 MCG TABLET (FP) PO SCH (06:46)
[2023-09-23] MEDS: INSULIN (LEVEMIR) 100 UNITS/ML UNITS SQ SCH (06:46)
[2023-09-23] MEDS: CEFTRIAXONE 1 GM in DEXTROSE 5%-WATER - 50 ML IVPB SCH (09:41)
[2023-09-23] MEDS: LOSARTAN POTASSIUM 50 MG TABLET PO SCH (09:41)
[2023-09-23] MEDS: METOPROLOL TARTRATE 25 MG TABLET (FP) PO SCH (09:42)
[2023-09-23] MEDS: amLODIPine BESYLATE 5 MG TABLET (FP) PO SCH (09:42)
[2023-09-23] MEDS: PANTOPRAZOLE 40 MG TABLET PO SCH (09:42)
[2023-09-23] MEDS: CLOPIDOGREL BISULFATE 75 MG TABLET (FP) PO SCH (09:42)
[2023-09-23 15:10] VITALS: BP 166/73; PULSE 67; TEMP 97.4
== END 2023-09-23 17:19 | disposition home health service (06) | DRG 872 ==
LOC: JER 01:53 → JERBED 09:42 → J8W 19:12
PROVIDERS: ADMIT Family Medicine; ATTEND Family Medicine
DX: A41.9 Sepsis, unspecified organism (principal); N17.9 Acute kidney failure, unspecified; E87.20 Acidosis, unspecified; N39.0 Urinary tract infection, site not specified; E11.9 Type 2 diabetes mellitus without complications; I10 Essential (primary) hypertension; E78.5 Hyperlipidemia, unspecified; K21.9 Gastro-esophageal reflux disease without esophagitis; E03.9 Hypothyroidism, unspecified; E86.0 Dehydration; R19.7 Diarrhea, unspecified; E66.9 Obesity, unspecified; Z68.32 Body mass index [BMI] 32.0-32.9, adult
CPT/HCPCS: 0241U-QW; 36415; 70450-TC; 71045-TC-FY; 74174-TC; 80048; 80053; 81003; 82550; 82553; 82803; 82962; 83036; 83605; 83735; 84439; 84443; 84484; 85025; 85027; 85610; 85651; 85730; 86140; 86376; 86850; 86900; 86901; 87040; 87086; 87186; 87899; 93005; 93010; 97116-GP; 97161-GP; 99285-25; J3370